=== PATIENT | male | born 1965 | race Caucasian/White ===

== ENCOUNTER 2016-06-19 14:27 | Inpatient (IN) | payer SELFPAY ==
[~2016-06-19] VITALS: Ht 195.6 cm; Wt 78.6 kg
[~2016-06-19 14:27] MED LIST: CLON1 PO
[2016-06-19 14:28] VITALS: BP 123/82; PULSE 90; RESP 24; TEMP 98.5; O2SAT 100
[2016-06-19 16:23] VITALS: TEMP 100.3
[2016-06-19] MEDS ORDERED: IBUPROFEN 600 MG TAB PO ONE (16:30)
--- NOTE | 2016-06-19 16:35 | PD ---
HPI Chief Complaint: Cold / Flu Symptoms Time Seen by Provider: 16:23 Travel History International Travel<30 days: No Contact w/Intl Traveler<30days: No Traveled to known affect area: No History of Present Illness HPI Patient is a 50-year-old male presents with 3 week history of cough productive of bloody sputum. Patient does relate a history that he was in [place] [facility] recently. He denies any fevers. He states he has not seen another physician for this. Denies any travel to foreign countries denies any history of tuberculosis. States he has not been losing weight but does endorse some night sweats. On arrival the patient was afebrile he was moved into the emergency department. On my initial evaluation was found to have a temperature of 100.3 orally. Denies any chest pain abdominal pain nausea vomiting or diarrhea. [facility] Past Medical History Anxiety: Yes ([address] KELLER) Diabetes: Yes (HYPOGLYCEMIA) Patient Takes Glucophage: No Diminished Hearing: No Past Surgical History Other Surgery: Yes (8 I+D PROCEDURES S/P INSECT BITE RIGHT ARM) Social History Alcohol Use: Yes ("maybe one drink once a month!") Tobacco Use: No (quit 3 weeks ago.) Substance Use: No (used to smoke crack) Allergies-Medications (Allergen,Severity, Reaction): Coded Allergies: Influenza Virus Vaccine (Verified Allergy, Severe, 06/19/16) Penicillin (Verified Allergy, Severe, 06/19/16) Uncoded Allergies: NONE (Allergy, Unknown, 11/04/02) PCN, FLU SHOT, CODEINE (Allergy, Unknown, 11/04/02) Reported Meds & Prescriptions Reported Meds & Active Scripts Active No Active Prescriptions or Reported Medications Review of Systems Except as stated in HPI: all other systems reviewed are Neg Physical Exam Narrative GENERAL: Well-developed , thin male in no apparent distress. SKIN: Warm and dry. HEAD: Atraumatic. Normocephalic. EYES: Pupils equal and round. No scleral icterus. No injection or drainage. ENT: No nasal bleeding or discharge. Mucous membranes pink and moist. NECK: Trachea midline. No JVD. CARDIOVASCULAR: Regular rate and rhythm. RESPIRATORY: No accessory muscle use. Clear to auscultation. Breath sounds equal bilaterally. GASTROINTESTINAL: Abdomen soft, non-tender, nondistended. Hepatic and splenic margins not palpable. MUSCULOSKELETAL: Extremities without clubbing, cyanosis, or edema. No obvious deformities. NEUROLOGICAL: Awake and alert. No obvious cranial nerve deficits. Motor grossly within normal limits. Five out of 5 muscle strength in the arms and legs. Normal speech. PSYCHIATRIC: Appropriate mood and affect; insight and judgment normal. Data Data Last Documented VS Vital Signs Date Time Temp Pulse Resp B/P Pulse Ox O2 Delivery O2 Flow Rate FiO2 06/19/16 17:59 95 17 139/78 97 Room Air 118/69 06/19/16 16:23 100.3 Orders Chest, Pa & Lat (06/19/16 ) Ibuprofen (Motrin) (06/19/16 16:30) Electrocardiogram (06/19/16 17:24) Complete Blood Count With Diff (06/19/16 17:24) Comprehensive Metabolic Panel (06/19/16 17:24) Magnesium (Mg) (06/19/16 17:24) Prothrombin Time / Inr (Pt) (06/19/16 17:24) Act Partial Throm Time (Ptt) (06/19/16 17:24) Troponin I (06/19/16 17:24) Ecg Monitoring (06/19/16 17:24) Bilateral Bp Monitoring (06/19/16 17:24) Iv Access Insert/Monitor (06/19/16 17:24) Oximetry (06/19/16 17:24) Oxygen Administration (06/19/16 17:24) Sodium Chloride 0.9% Flush (Ns Flush) (06/19/16 17:30) Blood Culture (06/19/16 17:24) Sodium Chlor 0.9% 1000 Ml Inj (Ns 1000 M (06/19/16 17:30) Piperacil-Tazo 3.375 Gm Premix (Zosyn 3. (06/19/16 17:30) Vancomycin Inj (Vancomycin Inj) (06/19/16 17:30) Lactic Acid (06/19/16 17:24) Isolation (06/19/16 17:24) Ct Thorax/ Chest W Iv Contrast (06/19/16 ) Consult Infectious Disease (06/19/16 ) Admit Order (Ed Use Only) (06/19/16 ) Labs Laboratory Tests Test 06/19/16 18:05 White Blood Count 16.6 TH/MM3 Red Blood Count 4.49 MIL/MM3 Hemoglobin 14.2 GM/DL Hematocrit 40.4 % Mean Corpuscular Volume 90.0 FL Mean Corpuscular Hemoglobin 31.5 PG Mean Corpuscular Hemoglobin 35.0 % Concent Red Cell Distribution Width 13.3 % Platelet Count 278 TH/MM3 Mean Platelet Volume 8.5 FL Neutrophils (%) (Auto) 80.3 % Lymphocytes (%) (Auto) 10.7 % Monocytes (%) (Auto) 7.8 % Eosinophils (%) (Auto) 0.7 % Basophils (%) (Auto) 0.5 % Neutrophils # (Auto) 13.3 TH/MM3 Lymphocytes # (Auto) 1.8 TH/MM3 Monocytes # (Auto) 1.3 TH/MM3 Eosinophils # (Auto) 0.1 TH/MM3 Basophils # (Auto) 0.1 TH/MM3 CBC Comment DIFF FINAL Differential Comment Prothrombin Time 12.6 SEC Prothromb Time International 1.1 RATIO Ratio Activated Partial 29.8 SEC Thromboplast Time Sodium Level 136 MEQ/L Potassium Level 3.9 MEQ/L Chloride Level 100 MEQ/L Carbon Dioxide Level 27.1 MEQ/L Anion Gap 9 MEQ/L Blood Urea Nitrogen 12 MG/DL Creatinine 0.90 MG/DL Estimat Glomerular Filtration 90 ML/MIN Rate Random Glucose 96 MG/DL Lactic Acid Level 0.9 mmol/L Calcium Level 8.8 MG/DL Magnesium Level 1.9 MG/DL Total Bilirubin 1.3 MG/DL Aspartate Amino Transf 38 U/L (AST/SGOT) Alanine Aminotransferase 50 U/L (ALT/SGPT) Alkaline Phosphatase 94 U/L Troponin I LESS THAN 0.02 NG/ML Total Protein 8.2 GM/DL Albumin 2.9 GM/DL [facility] Medical Decision Making Medical Screen Exam Complete: Yes Emergency Medical Condition: Yes Interpretation(s) EKG shows normal sinus rhythm normal axis normal R-wave progression. Voltage criteria for LVH. No concerning ST-T changes. Intervals within normal limits. This an abnormal EKG. Differential Diagnosis Tuberculosis, lung cancer, pneumonia, sepsis, bronchitis, URI. Narrative Course 1729: The patient has had a chest x-ray which shows a possible cavitary lesion in the right upper lung. Recommendations from radiology is to have a CAT scan. At this time the patient was placed on respiratory isolation. He was initially moved from delta 41 to delta 44. It was noted at that time the delta 44 negative isolation was not working. Room and another pod was cleared out which was a functioning isolation pod and the patient was roomed again the Marco pod. Full workup was then initiated. After CAT scan was completed the patient was discussed with Dr. Chapman of interventional radiology who agrees that tuberculosis is on the differential diagnosis however fungal pneumonia necrotic pneumonia or necrotic lung cancer also on the differential diagnoses. Patient remains in respiratory isolation and is otherwise stable. Patient's labs reviewed and showed a white count of 16.6 with left shift, the patient is tachycardic and now with 2 out of 3 SIRS criteria he does meet the diagnosis for sepsis. Broad-spectrum antibiotics were initiated. The patient does not have indication for severe sepsis and therefore aggressive fluid hydration was kept to a minimum. 1944: I spoke to Dr. Villalpando who is on-call for infectious disease today about the patient. They recommends currently that the patient not receive any antibiotics against tuberculosis at this time until the patient has confirmed by acid-fast bacilli or other testing. Recommends that the on-call physician be paged once the diagnosis of TB has been confirmed. They agrees with Daniel for the time being. Dr. Desouza has been paged to admit the patient. Critical Care Narrative Aggregate critical care time was 35 minutes. Time to perform other separately billable procedures was not included in the critical care time. My time did not include minutes spent treating any other patients simultaneously or on activities that did not directly contribute to the patient's treatment. The services I provided to this patient were to treat and/or prevent clinically significant deterioration that could result in: , disability. I provided critical care services requiring my management, as noted below: Chart data review, documentation time, medication orders and management, vital sign assessments/reviewing monitor data, ordering and reviewing lab tests, ordering and interpreting/reviewing x-rays and diagnostic studies, care of the patient and discussion of the patient with the admitting physicians. Diagnosis Primary Impression: Sepsis Qualified Code: A41.9 - Sepsis, due to unspecified organism Additional Impressions: Pneumonia Qualified Code: J18.9 - Pneumonia of right lung due to infectious organism, unspecified part of lung Cavitary lesion of lung Admitting Information Admitting Physician Requests: Admit Scripts No Active Prescriptions or Reported Meds Condition: Stable Bj Singh MD Jun 19, 2016 16:35
--- NOTE | 2016-06-19 17:14 | RADRPT ---
EXAM DATE/TIME: 06/19/2016 16:39 [facility] COMPARISON: No previous studies available for comparison. INDICATIONS : Cough, Hemoptysis, Fever MEDICAL HISTORY : None. SURGICAL HISTORY : None. ENCOUNTER: Initial ACUITY: 4 - 6 days PAIN SCORE: 0/10 LOCATION: Bilateral chest FINDINGS: There is an asymmetric appearance to the medial apex of the right lung with suggestion of a cavitary mass measuring 4.7 cm. The remainder of the lungs are clear. The heart is normal size. The central bronchopulmonary markings both hemidiaphragms. CONCLUSION: Possible cavitary opacity in the medial right pulmonary apex. Recommend further characterization wit h noncontrast CT thorax. Arash Chapman MD on June 19, 2016 at 17:11 Board Certified Radiologist. This report was verified electronically.
[2016-06-19 17:19] VITALS: BP 120/70; PULSE 85; RESP 17; O2SAT 100
[2016-06-19] MEDS ORDERED: VANCOMYCIN INJ 1,000 MG in SODIUM CHLOR 0.9% 250 ML INJ 250 ML IV ONE (17:30)
[2016-06-19] MEDS ORDERED: SODIUM CHLOR 0.9% 1000 ML INJ 1,000 ML IV ONE (17:30)
[2016-06-19] MEDS ORDERED: PIPERACIL-TAZO 3.375 GM PREMIX 50 ML IV ONE (17:30)
[2016-06-19] MEDS ORDERED: SODIUM CHLORIDE 0.9% FLUSH 10 ML FLUSH IVF PRN (17:30)
[2016-06-19 17:59] VITALS: BP_SYST 118; BP_SYST 139; BP_DIAS 69; BP_DIAS 78; PULSE 95; RESP 17; O2SAT 97
[2016-06-19] MEDS ORDERED: IOHEXOL 350 MG/ML 10 ML VIAL (for RAD DIAG) IV ONE (18:28)
[2016-06-19 18:45] LABS: AUTOMATED NEUTROPHIL # 13.3 TH/MM3 (1.8-7.7); BASOPHIL # 0.1 TH/MM3 (0-0.2); BASOPHIL % 0.5 % (0.0-2.0); EOSINOPHIL # 0.1 TH/MM3 (0-0.4); EOSINOPHIL % 0.7 % (0.0-4.0); HEMATOCRIT 40.4 % (39.0-51.0); HEMO FLAGS DIFF FINAL; LYMPH % 10.7 % (9.0-44.0); LYMPHOCYTE # 1.8 TH/MM3 (1.0-4.8); MEAN CORPUSCULAR HEMOGLOBIN 31.5 PG (27.0-34.0); MONO % 7.8 % (0.0-8.0); NEUT % 80.3 % (16.0-70.0); PLATELET COUNT 278 TH/MM3 (150-450); RED BLOOD COUNT 4.49 MIL/MM3 (4.50-5.90); RED CELL DISTRIBUTION WIDTH 13.3 % (11.6-17.2); WHITE BLOOD COUNT 16.6 TH/MM3 (4.0-11.0)
--- NOTE | 2016-06-19 18:52 | RADRPT ---
EXAM DATE/TIME: 06/19/2016 18:28 [facility] COMPARISON: No previous studies available for comparison. INDICATIONS : Cough X 3 weeks; hemoptysis X 3 days. IV CONTRAST: 90 cc Omnipaque 350 (iohexol) IV RADIATION DOSE: 4.83 CTDIvol (mGy) MEDICAL HISTORY : Diabetes mellitus type 1. SURGICAL HISTORY : None. ENCOUNTER: Initial ACUITY: 3 weeks PAIN SCALE: 0/10 LOCATION: chest TECHNIQUE: Volumetric scanning of the chest was performed. Using automated exposure control and adjustment of t he mA and/or kV according to patient size, radiation dose was kept as low as reasonably achievable to obtain optimal diagnostic quality images. FINDINGS: LUNGS: There is a 4.3 x 5.9 cm mass in the medial right apex which measures 4.3 cm. Irregular air-containin g cavity centrally. There are a few bronchopulmonary markings in the medial right upper lung which i s are partially retracted towards the mass. There are several subpleural blebs present medially in b oth lungs. No other focal areas of infiltrate seen. Some thickening along the inferior pulmonary li gaments bilaterally. PLEURA: There is no pleural thickening or pleural effusion. MEDIASTINUM: The heart and great vessels demonstrate no acute abnormality. There is no mediastinal or hilar lymph adenopathy. AXILLAE: Within normal limits. No lymphadenopathy. SKELETAL: Within normal limits for patient age. MISCELLANEOUS: Both adrenal glands are grossly intact. CONCLUSION: Greater than 5 cm thickwalled cavitary lesion in the right apex without central debris within the cav ity. Differential considerations include a bacterial infection, fungal infection, and necrotic tumor . No evidence of mediastinal adenopathy or pleural effusion. Arash Chapman MD on June 19, 2016 at 18:44 Board Certified Radiologist. This report was verified electronically.
[2016-06-19 19:03] LABS: APTT (PATIENT) 29.8 SEC (24.3-30.1); INTERNATIONAL NORMALIZED RATIO 1.1 RATIO; PROTHROMBIN TIME - PATIENT 12.6 SEC (9.8-11.6)
[2016-06-19 19:07] LABS: ANION GAP 9 MEQ/L (5-15); AST (GOT) 38 U/L (15-37); BICARBONATE 27.1 MEQ/L (21.0-32.0); BLOOD UREA NITROGEN 12 MG/DL (7-18); CHLORIDE 100 MEQ/L (98-107); GLOMERULAR FILTRATION RATE 90 ML/MIN (>89); MAGNESIUM 1.9 MG/DL (1.5-2.5); POTASSIUM 3.9 MEQ/L (3.5-5.1); SODIUM (NA) 136 MEQ/L (136-145)
[2016-06-19 19:12] LABS: ALKALINE PHOSPHATASE 94 U/L (45-117); ALT (GPT) 50 U/L (12-78); TOTAL BILIRUBIN ADULT 1.3 MG/DL (0.2-1.0)
[2016-06-19] MEDS ORDERED: NALOXONE HCL 0.4 MG/ML AMP IV PRN (20:00)
[2016-06-19] MEDS ORDERED: ENALAPRILAT 1.25 MG/ML VIAL IV PUSH PRN (20:00)
[2016-06-19] MEDS ORDERED: MORPHINE SULFATE 4 MG/ML INJ IV PRN (20:00)
[2016-06-19] MEDS ORDERED: ONDANSETRON HCL 4 MG/2 ML VIAL IVP PRN (20:00)
[2016-06-19] MEDS ORDERED: SODIUM CHLORIDE 0.9% FLUSH 10 ML FLUSH IV FLUSH PRN (20:00)
[2016-06-19] MEDS ORDERED: ACETAMINOPHEN 325 MG TAB PO PRN ×2 (20:00)
[2016-06-19] MEDS ORDERED: TEMAZEPAM 15 MG CAP PO PRN (20:00)
[2016-06-19] MEDS ORDERED: RESP: ALBUTEROL 2.5 MG/IPRATROPIUM 0.5 MG NEB (PRN) NEB (20:00)
[2016-06-19 20:01] VITALS: BP 124/70; PULSE 84; RESP 16; TEMP 98.7; O2SAT 97
[2016-06-19] MEDS ORDERED: Vancomycin Consult Pharmacy 1 EA OTHER PRN (20:15)
--- NOTE | 2016-06-19 20:29 | HHI.HP ---
HPI Service [facility] Primary Care Physician No Primary Care Physician Admission Diagnosis Cavitary Lung Lesion. Diagnoses: (1) Cavitary lesion of lung (2) Community acquired bacterial pneumonia (3) Aspiration pneumonia (4) Protein-calorie malnutrition, severe (5) Sepsis Chief Complaint: Bloody sputum production Travel History International Travel<30 Days: No Contact w/Intl Traveler <30 Da: No Traveled to Known Affected Are: No Sepsis Criteria SIRS Criteria (2 or more): Temp > 100.9 or < 96.8, WBC > 80466, < 4000 or > 10 % bands Sepsis Criteria (SIRS+source): Infect source susp/known Criteria Outcome: Meets sepsis criteria History of Present Illness 50 year-old male with a history of anxiety/depression presented to the ED for evaluation of 3 weeks history of bloody sputum production associated with night sweats, subjective fevers and increased shortness of breath along with a 30 pound weight loss over the past 1 month. She also reported sick contacts, his girlfriend however with symptoms not as severe as his. He was recently in care home or denies any trauma to any foreign countries or known history of exposure to tuberculosis. Patient states he's tried [id number] Mucinex for his cough and cold symptoms without any improvement . In the ED, vitals include temperature of 100.3 and WBC of 16.6 and abnormal chest x-ray as well as CT chest Patient is a 50-year-old male presents with 3 week history of cough productive of bloody sputum. Patient does relate a history that he was in care home recently. He denies any fevers. He states he has not seen another physician for this. Denies any travel to foreign countries denies any history of tuberculosis. States he has not been losing weight but does endorse some night sweats. On arrival the patient was afebrile he was moved into the emergency department. On my initial evaluation was found to have a temperature of 100.3 orally. Denies any chest pain abdominal pain nausea vomiting or diarrhea. Review of Systems Other 12 systems reviewed and are negative except for the one mentioned in history of present illness Past Family Social History Past Medical History Anxiety/depression Past Surgical History I+D PROCEDURES S/P INSECT BITE RIGHT ARM Right elbow surgery Reported Medications Not Currently on any medication Allergies: Coded Allergies: Influenza Virus Vaccine (Verified Allergy, Severe, 06/19/16) Penicillin (Verified Allergy, Severe, 06/19/16) Uncoded Allergies: NONE (Allergy, Unknown, 11/04/02) PCN, FLU SHOT, CODEINE (Allergy, Unknown, 11/04/02) Family History father from heart attack at age 71. Had history of heart disease Mother has history of hypertension, heart disease Social History Alcohol Use: Yes ("maybe one drink once a month!") Tobacco Use: No (quit 3 weeks ago.) Substance Use: No (used to smoke crack) Physical Exam Vital Signs Vital Signs Date Time Temp Pulse Resp B/P Pulse Ox O2 Delivery O2 Flow Rate FiO2 06/19/16 20:01 98.7 84 16 124/70 97 Room Air 06/19/16 17:59 95 17 139/78 97 Room Air 118/69 06/19/16 17:19 85 17 120/70 100 Room Air 06/19/16 16:23 100.3 06/19/16 14:28 98.5 90 24 123/82 100 Room Air Physical Exam GENERAL: Cachectic looking man with temporal wasting SKIN: No rashes, ecchymoses or lesions. Cool and dry. HEAD: Atraumatic. Normocephalic. No temporal or scalp tenderness. EYES: Pupils equal round and reactive. Extraocular motions intact. No scleral icterus. No injection or drainage. ENT: Nose without bleeding, purulent drainage or septal hematoma. Throat without erythema, tonsillar hypertrophy or exudate. Uvula midline. Airway patent. NECK: Trachea midline. No JVD or lymphadenopathy. Supple, nontender, no meningeal signs. CARDIOVASCULAR: Regular rate and rhythm without murmurs, gallops, or rubs. RESPIRATORY: Clear to auscultation. Breath sounds decreased bilaterally. No wheezes, rales, or rhonchi. GASTROINTESTINAL: Abdomen soft, non-tender, nondistended. No hepato-splenomegaly , or palpable masses. No guarding. MUSCULOSKELETAL: Extremities without clubbing, cyanosis, or edema. No joint tenderness, effusion, or edema noted. No calf tenderness. Negative Homans sign bilaterally. NEUROLOGICAL: Awake and alert. Cranial nerves II through XII intact. Motor and sensory grossly within normal limits. Five out of 5 muscle strength in all muscle groups. Normal speech. Laboratory Laboratory Tests Test 06/19/16 18:05 White Blood Count 16.6 Red Blood Count 4.49 Hemoglobin 14.2 Hematocrit 40.4 Mean Corpuscular Volume 90.0 Mean Corpuscular Hemoglobin 31.5 Mean Corpuscular Hemoglobin 35.0 Concent Red Cell Distribution Width 13.3 Platelet Count 278 Mean Platelet Volume 8.5 Neutrophils (%) (Auto) 80.3 Lymphocytes (%) (Auto) 10.7 Monocytes (%) (Auto) 7.8 Eosinophils (%) (Auto) 0.7 Basophils (%) (Auto) 0.5 Neutrophils # (Auto) 13.3 Lymphocytes # (Auto) 1.8 Monocytes # (Auto) 1.3 Eosinophils # (Auto) 0.1 Basophils # (Auto) 0.1 CBC Comment DIFF FINAL Differential Comment Prothrombin Time 12.6 Prothromb Time International 1.1 Ratio Activated Partial 29.8 Thromboplast Time Sodium Level 136 Potassium Level 3.9 Chloride Level 100 Carbon Dioxide Level 27.1 Anion Gap 9 Blood Urea Nitrogen 12 Creatinine 0.90 Estimat Glomerular Filtration 90 Rate Random Glucose 96 Lactic Acid Level 0.9 Calcium Level 8.8 Magnesium Level 1.9 Total Bilirubin 1.3 Aspartate Amino Transf 38 (AST/SGOT) Alanine Aminotransferase 50 (ALT/SGPT) Alkaline Phosphatase 94 Troponin I LESS THAN 0.02 Total Protein 8.2 Albumin 2.9 Date/Time Procedure Status Source Growth 06/19/16 18:05 Aerobic Blood Culture Received Blood Peripheral Pending 06/19/16 18:05 Anaerobic Blood Culture Received Blood Peripheral Pending Result Diagram: 06/19/16 1805 06/19/16 1805 Imaging Last Impressions Chest X-Ray 06/19/16 0000 Signed Impressions: Service Date/Time: Sunday, June 19, 2016 16:39 - CONCLUSION: Possible cavitary opacity in the medial right pulmonary apex. Recommend further characterization with noncontrast CT thorax. Arash Chapman MD Chest CT 06/19/16 0000 Signed Impressions: Service Date/Time: Sunday, June 19, 2016 18:28 - CONCLUSION: Greater than 5 cm thickwalled cavitary lesion in the right apex without central debris within the cavity. Differential considerations include a bacterial infection, fungal infection, and necrotic tumor. No evidence of mediastinal adenopathy or pleural effusion. Arash Chapman MD Assessment and Plan Problem List: (1) Sepsis ICD Code: A41.9 Status: Acute (2) Cavitary lesion of lung ICD Code: J98.4 Status: Acute (3) Pneumonia ICD Code: J18.9 Status: Acute (4) Protein-calorie malnutrition, severe ICD Code: E43 Status: Acute (5) Community acquired bacterial pneumonia ICD Code: J15.9 Status: Acute (6) Aspiration pneumonia ICD Code: J69.0 Status: Acute Assessment and Plan 50-year-old man with Sepsis:Meets sepsis criteria, Temp > 100.9 or < 96.8, WBC > 94111, < 4000 or > 10% bands, Infect source susp/known (Respiratory/ PNA): s/p Vancomycin and Zosyn IV x 1 in ED, continue with Abx pending culture reports Cavitary lesion of the Lung Rule out tuberculosis Rule out malignancy Community acquired Bacterial Pneumonia Aspiration Bacterial Pneumonia -Chest CT noted and reviewed by me with finding of Greater than 5 cm thickwalled cavitary lesion in the right apex without central debris within the cavity. Differential considerations include a bacterial infection, fungal infection, and necrotic tumor -Chest x-ray noted and reviewed by me with finding of Possible cavitary opacity in the medial right pulmonary apex -Check Sylvain tuberculosis/RIF, AFP sputum -Check tumor Markers AFP, CEA, Ca 19-9, LDH -Check HIV 1/2 antibodies -Status post Zosyn and vancomycin 1 in ED, continue empiric treatments with antibiotics pending culture report -DuoNeb when necessary and Mucinex -Consult infectious disease specialist and consider consultation to pulmonary medicine for eval patient for possible bronchoscopy -Please in isolation Protein-calorie malnutrition severe Secondary to above Dietary/Vertical Punch Operator consult for calorie counts DVT prophylaxis: Bilateral SCDs GI prophylaxis: PPI Code Status Full code Discussed Condition With Patient, ED physician Physician Certification 2 Midnight Certification Type: Admission for Inpatient Services Order for Inpatient Services The services are ordered in accordance with Medicare regulations or non- Medicare payer requirements, as applicable. In the case of services not specified as inpatient-only, they are appropriately provided as inpatient services in accordance with the 2-midnight benchmark. Estimated LOS (days): 2 days is the estimated time the patient will need to remain in the hospital, assuming treatment plan goals are met and no additional complications. Post-Hospital Plan: Not yet determined Problem Qualifiers (1) Sepsis: Qualified Code: A41.9 - Sepsis, due to unspecified organism (2) Pneumonia: Qualified Code: J18.9 - Pneumonia of right lung due to infectious organism, unspecified part of lung Dillon Desouza MD Jun 19, 2016 20:29
[2016-06-19] MEDS: guaiFENesin E.R. 600 MG TAB PO SCH (21:24)
[2016-06-19] MEDS: LACTOBACILLUS ACIDOPHILUS TAB PO SCH (21:24)
[2016-06-19] MEDS: SODIUM CHLORIDE 0.9% FLUSH 10 ML FLUSH IV FLUSH SCH (21:24)
[2016-06-19] MEDS: SODIUM CHLOR 0.9% 1000 ML INJ 1,000 ML IV SCH (21:24)
[2016-06-19 22:58] VITALS: BP 113/63; PULSE 76; RESP 18; TEMP 98.2; O2SAT 97
[2016-06-20 01:04] LABS: AMPHETAMINE, URINE NEG (NEG); BARBITURATES, URINE NEG (NEG); COCAINE, URINE POS (NEG)
[2016-06-20] MEDS: PIPERACIL-TAZO 3.375 GM PREMIX 50 ML IV SCH ×3 (02:18→17:29)
[2016-06-20 04:42] VITALS: BP 109/64; PULSE 83; RESP 18; TEMP 98.8; O2SAT 96
[2016-06-20 06:38] LABS: AUTOMATED NEUTROPHIL # 7.5 TH/MM3 (1.8-7.7); BASOPHIL # 0.1 TH/MM3 (0-0.2); BASOPHIL % 0.8 % (0.0-2.0); EOSINOPHIL # 0.3 TH/MM3 (0-0.4); EOSINOPHIL % 2.7 % (0.0-4.0); HEMATOCRIT 38.7 % (39.0-51.0); HEMO FLAGS DIFF FINAL; LYMPH % 22.3 % (9.0-44.0); LYMPHOCYTE # 2.7 TH/MM3 (1.0-4.8); MEAN CELL VOLUME 91.5 FL (80.0-100.0); MEAN CORPUSCULAR HEMOGLOBIN 31.1 PG (27.0-34.0); MONO % 11.4 % (0.0-8.0); NEUT % 62.8 % (16.0-70.0); PLATELET COUNT 236 TH/MM3 (150-450); RED BLOOD COUNT 4.22 MIL/MM3 (4.50-5.90); RED CELL DISTRIBUTION WIDTH 13.6 % (11.6-17.2)
[2016-06-20 07:03] LABS: ALT (GPT) 40 U/L (12-78); ANION GAP 4 MEQ/L (5-15); AST (GOT) 29 U/L (15-37); BICARBONATE 30.7 MEQ/L (21.0-32.0); BLOOD UREA NITROGEN 17 MG/DL (7-18); CHLORIDE 106 MEQ/L (98-107); GLOMERULAR FILTRATION RATE 79 ML/MIN (>89); SODIUM (NA) 141 MEQ/L (136-145)
[2016-06-20 07:05] LABS: ALKALINE PHOSPHATASE 75 U/L (45-117); TOTAL BILIRUBIN ADULT 0.8 MG/DL (0.2-1.0)
[2016-06-20] MEDS: SODIUM CHLOR 0.9% 1000 ML INJ 1,000 ML IV SCH ×2 (07:44→09:57)
[2016-06-20] MEDS: SODIUM CHLORIDE 0.9% FLUSH 10 ML FLUSH IV FLUSH SCH ×2 (09:00→20:08)
[2016-06-20] MEDS: guaiFENesin E.R. 600 MG TAB PO SCH ×2 (09:58→20:16)
[2016-06-20] MEDS: LACTOBACILLUS ACIDOPHILUS TAB PO SCH ×2 (09:58→20:16)
[2016-06-20] MEDS: PANTOPRAZOLE SOD 40 MG DELAYED RELEASE TAB PO SCH (09:58)
[2016-06-20 11:53] VITALS: BP 112/59; PULSE 72; RESP 18; TEMP 98.2; O2SAT 97
--- NOTE | 2016-06-20 13:24 | HHI.PR ---
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 No hemoptysis. No fevers or chills/ overnight. No n/v/d. Feels better today. Objective Vitals Vital Signs Date Time Temp Pulse Resp B/P Pulse Ox O2 Delivery O2 Flow Rate FiO2 06/20/16 11:53 98.2 72 18 112/59 97 06/20/16 04:42 98.8 83 18 109/64 96 06/19/16 22:58 98.2 76 18 113/63 97 06/19/16 20:01 98.7 84 16 124/70 97 Room Air 06/19/16 17:59 95 17 139/78 97 Room Air 118/69 06/19/16 17:19 85 17 120/70 100 Room Air 06/19/16 16:23 100.3 06/19/16 14:28 98.5 90 24 123/82 100 Room Air Result Diagram: 06/20/16 0605 06/20/16 0605 Imaging Last Impressions Chest X-Ray 06/19/16 0000 Signed Impressions: Service Date/Time: Sunday, June 19, 2016 16:39 - CONCLUSION: Possible cavitary opacity in the medial right pulmonary apex. Recommend further characterization with noncontrast CT thorax. Arash Chapman MD Chest CT 06/19/16 0000 Signed Impressions: Service Date/Time: Sunday, June 19, 2016 18:28 - CONCLUSION: Greater than 5 cm thickwalled cavitary lesion in the right apex without central debris within the cavity. Differential considerations include a bacterial infection, fungal infection, and necrotic tumor. No evidence of mediastinal adenopathy or pleural effusion. Arash Chapman MD Objective Remarks GENERAL: Cachectic looking man with temporal wasting SKIN: No rashes, ecchymoses or lesions. Cool and dry. HEAD: Atraumatic. Normocephalic. No temporal or scalp tenderness. EYES: Pupils equal round and reactive. Extraocular motions intact. No scleral icterus. No injection or drainage. ENT: Nose without bleeding, purulent drainage or septal hematoma. Throat without erythema, tonsillar hypertrophy or exudate. Uvula midline. Airway patent. NECK: Trachea midline. No JVD or lymphadenopathy. Supple, nontender, no meningeal signs. CARDIOVASCULAR: Regular rate and rhythm without murmurs, gallops, or rubs. RESPIRATORY: Clear to auscultation. Breath sounds decreased bilaterally. No wheezes, rales, or rhonchi. GASTROINTESTINAL: Abdomen soft, non-tender, nondistended. No hepato-splenomegaly , or palpable masses. No guarding. MUSCULOSKELETAL: Extremities without clubbing, cyanosis, or edema. No joint tenderness, effusion, or edema noted. No calf tenderness. Negative Homans sign bilaterally. NEUROLOGICAL: Awake and alert. Cranial nerves II through XII intact. Motor and sensory grossly within normal limits. Five out of 5 muscle strength in all muscle groups. Normal speech. A/P Problem List: (1) Sepsis ICD Code: A41.9 Status: Acute (2) Cavitary lesion of lung ICD Code: J98.4 Status: Acute (3) Pneumonia ICD Code: J18.9 Status: Acute (4) Protein-calorie malnutrition, severe ICD Code: E43 Status: Acute (5) Community acquired bacterial pneumonia ICD Code: J15.9 Status: Acute (6) Aspiration pneumonia ICD Code: J69.0 Status: Acute Assessment and Plan 50-year-old man with Sepsis:Meets sepsis criteria, Temp > 100.9 or < 96.8, WBC > 62238, < 4000 or > 10% bands, Infect source susp/known (Respiratory/ PNA): s/p Vancomycin and Zosyn IV x 1 in ED, continue with Abx pending culture reports Cavitary lesion of the Lung Rule out tuberculosis Rule out malignancy Community acquired Bacterial Pneumonia Aspiration Bacterial Pneumonia -Chest CT noted and reviewed by me with finding of Greater than 5 cm thick walled cavitary lesion in the right apex without central debris within the cavity. Differential considerations include a bacterial infection, fungal infection, and necrotic tumor -Chest x-ray noted and reviewed by me with finding of Possible cavitary opacity in the medial right pulmonary apex -Check Sylvain tuberculosis/RIF, AFP sputum -Check tumor Markers AFP, CEA, Ca 19-9, LDH -Check HIV 1/2 antibodies -Status post Zosyn and vancomycin 1 in ED, continue empiric treatments with antibiotics pending culture report -DuoNeb when necessary and Mucinex -Consult infectious disease specialist -Consultation to pulmonary medicine for eval patient for possible bronchoscopy -Placed in isolation Protein-calorie malnutrition severe Secondary to above 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
--- NOTE | 2016-06-20 14:29 | EKG ---
Date Performed: 06/19/2016 Time Performed: 17:44:30 PTAGE: 50 years EKG: Sinus rhythm VOLTAGE CRITERIA FOR LVH ABNORMAL ECG Compared to prior tracing no significant change PREVIOUS TRACING : 06/06/2002 06.57 DOCTOR: Elijah Shay Interpretating Date/Time 06/20/2016 14:25:53
[2016-06-20] MEDS: VANCOMYCIN 1,500 MG/NS 500 ML IV SCH ×2 (14:56)
--- NOTE | 2016-06-20 15:24 | MB ---
cc: HEIKE BILL,MARY JO Munguia MD DATE OF CONSULTATION: 06/20/[address] Bill REASON FOR CONSULTATION Likely pulmonary tuberculosis. HISTORY OF PRESENT ILLNESS This is a 50-year-old white male who presented to the emergency department with cough and shortness of breath. The patient has been coughing up blood for about three weeks. He tells me that he was coughing up clumps of blood throughout that time. He states that he was taking [id number] medications but was not leading to improvement. He also notes having night sweats and weight loss. He states that he lost approximately 30 pounds of weight over the past three weeks. He denies any sick contacts of contact with persons with tuberculosis. The patient smokes about a quarter pack of cigarettes a day and smoked up until three weeks ago. His temperature was 100.3 degrees yesterday evening. Blood cultures have no growth. The white count was elevated at 16.6. Sputum for AFB is pending. Blood cultures have no growth in one day. Chest x-ray was performed and showed possible cavitary opacity at the medial right pulmonary apex. CT scan of the lungs was performed and showed greater than a 5 cm thick wall cavity lesion in the right apex. The patient denies chills. He denies headaches. He states that he has been coughing quite a bit in the morning time. PAST MEDICAL HISTORY 1. Anxiety. 2. Depression. 3. History of MRSA infection of the right arm. 4. Right elbow surgery. ALLERGIES 1. PENICILLIN. 2. CODEINE. 3. INFLUENZA VIRUS VACCINE. MEDICATIONS 1. Vancomycin. 2. Piperacillin/tazobactam. 3. Protonix. 4. Mucinex. 5. Lactinex. SOCIAL HISTORY Recently quit smoking three weeks ago. The patient used to smoke a pack of cigarettes a day and has been smoking for 21 years. Occasional alcohol. Denies illicit drugs. FAMILY HISTORY The patient's mom has hypertension. The patient's dad from heart disease. REVIEW OF SYSTEMS GENERAL: Significant for sweats. Denies fevers and chills. HEAD, EYES, EARS, NOSE, AND THROAT: No visual blurring or diplopia. No difficulty swallowing or soreness of the throat. Chronic nasal congestion. CARDIOVASCULAR: No palpitation or chest pain. RESPIRATORY: Significant for hemoptysis and cough. GASTROINTESTINAL: No nausea, vomiting, abdominal pain or diarrhea. GENITOURINARY: No urgency, frequency or dysuria. MUSCULOSKELETAL: No muscle aches or pains. ENDOCRINE: No polyuria or polydipsia. HEMATOPOIETIC: No easy bruising or bleeding. INTEGUMENTARY: No skin rash or itching. NEUROLOGIC: No problems with coordination or dizziness. PSYCHIATRIC: Significant for depression. PHYSICAL EXAMINATION GENERAL: This is a well-developed slender male who is in no acute distress. He is awake, alert and oriented. VITAL SIGNS: Temperature 98.2, BP 112/59, respirations 18, heart rate 72. HEENT: The head is atraumatic. Extraocular movements grossly intact. Pupils reactive to light. No icterus. Oropharynx no visible lesions, no thrush. NECK: Supple. No adenopathy or swelling. LUNGS: Decreased breath sounds throughout. No audible rhonchi. HEART: Regular rate and rhythm without murmurs, rubs or gallops. ABDOMEN: Bowel sounds present. Soft, nontender. RECTAL: Not performed. EXTREMITIES: No clubbing, cyanosis or edema. SKIN: No rash. The skin of the extremities have a chronic sunburn appearance. NEUROLOGIC: Nonfocal. PSYCHIATRIC: Patient calm and cooperative. LABORATORY WBC 12.0, platelets 236, 62% neutrophils, 22% lymphocytes, 11% monocytes, hemoglobin 13.1. Creatinine 1.01, BUN 17, sodium 141. LFTs normal. Toxicology screen positive for cocaine. HIV negative. IMPRESSION 1. Cavitary lung lesion. 2. Pneumonia due to bacterial versus tuberculosis versus fungus. 3. Rule out malignancy. 4. Sepsis based on presentation of fever along with leukocytosis and pneumonia of the lung suspected. RECOMMENDATIONS 1. Continue vancomycin. 2. Continue piperacillin/tazobactam. 3. Follow the AFB of the sputum. 4. Follow blood cultures. 5. Monitor clinical status. 6. Further recommendations will be given depending on the patient's clinical status and results of the sputum AFB. 7. The patient does not need to be started on anti-TB medications until work-up is performed and tuberculosis is diagnosed. Thank you for this consultation. Mary Jo Hurst MD FD/GILBERTO /1:39 PM /3:08 PM
[2016-06-20 15:35] VITALS: BP 116/72; PULSE 69; RESP 18; TEMP 98.3; O2SAT 97
[2016-06-20] MEDS ORDERED: VANCOMYCIN INJ 1,000 MG in SODIUM CHLOR 0.9% 250 ML INJ 250 ML IV SCH (18:00)
[2016-06-20 20:19] VITALS: BP 119/72; PULSE 80; RESP 18; TEMP 98.2; O2SAT 95
[2016-06-21] VITALS (8 sets, daily range): BP systolic 100–124; BP diastolic 58–75; PULSE 64–73; RESP 16–20; TEMP 96.6–99.1; O2SAT 95–98
[2016-06-21] MEDS: VANCOMYCIN 1,500 MG/NS 500 ML IV SCH ×4 (01:33→14:14)
[2016-06-21] MEDS: SODIUM CHLOR 0.9% 1000 ML INJ 1,000 ML IV SCH ×3 (01:51→21:51)
[2016-06-21] MEDS: PIPERACIL-TAZO 3.375 GM PREMIX 50 ML IV SCH ×3 (03:55→18:35)
--- NOTE | 2016-06-21 08:24 | MB ---
cc: JACQUES JOSHUA DATE OF CONSULTATION 06/20/[address] Duran REASON FOR CONSULTATION Evaluation of lung infiltrates and cavitary lesions. HISTORY OF PRESENT ILLNESS Mr. Chávez is a 50-year-old male who has not seen a physician for a long time. He was not feeling well over the last three weeks or so, he has cough and sputum production and has coughed up blood a few times. He says that coughing blood had scared him and that is why he decided to come to the emergency room. He has been eating very well, but has lost about 30 pounds of weight over the last three weeks. No nausea or vomiting. With these symptoms, he came to the hospital. He had a CT scan of the chest done which shows that he has a large cavitary lesion in the right apex. His CBC showed a WBC count of 12.0, hemoglobin 13.1, hematocrit 38.7, MCV 91, platelet count 236. His sodium 141, potassium 4.0, chloride 106, CO2 30, BUN 17, creatinine 1.01, INR is 1.1. PAST MEDICAL HISTORY His past medical history is a significant for: 1. Anxiety depression 2. History of MRSA infection. 3. Elbow surgery MEDICATIONS He is currently takin. Vancomycin 2. Protonix 3. Zosyn 4. Temazepam 5. Albuterol/Atrovent nebulizer treatment. ALLERGIES PENICILLIN, FLU SHOT AND CODEINE. SOCIAL HISTORY He has a history of smoking more than a pack a day which she had cut down to a few cigarettes a day. He stopped drinking five years ago. He has used marijuana and cocaine in the past. Denies any IV drug abuse. 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 FAMILY HISTORY He was a long time ago. He has no children. He has a brother and sister. REVIEW OF SYSTEMS He has been incarcerated a couple of times a long time ago. Denies any known contact with TB. No seizure, stroke or epilepsy. No episodes of passing out. PHYSICAL EXAMINATION This is a well-built, well-nourished male not in acute distress. VITAL SIGNS: Blood pressure 119/72, heart rate 80, respiration 18, temperature 98.2. HEENT: Pupils are equal and reactive to light. Oral mucosa and nasal mucosa normal. NECK: JVP not raised. CHEST: Equal air entry. No rhonchi. CARDIOVASCULAR: S1 and S2 normal. ABDOMEN: Benign. EXTREMITIES: Without edema. IMPRESSION 1. Right upper lobe cavitary lesion, possibility of infectious process like TB, fungal infection. However, malignancy is not completely ruled out. 2. Hemoptysis 3. Weight loss 4. History of nicotine use. PLAN I discussed with the patient. The patient is being seen by Dr. Hurst. We will check his cultures. If AFB negative, then we will consider bronchoscopy. Continue present antibiotic treatment. Further treatment to depend upon the course in the hospital. Thank you Dr. Duran for this consultation. MD MARGE Amaya/ALEXIS /8:34 PM /8:06 AM MTDJeanie
[2016-06-21] MEDS: PANTOPRAZOLE SOD 40 MG DELAYED RELEASE TAB PO SCH (08:33)
[2016-06-21] MEDS: guaiFENesin E.R. 600 MG TAB PO SCH ×2 (08:33→21:51)
[2016-06-21] MEDS: LACTOBACILLUS ACIDOPHILUS TAB PO SCH ×2 (08:33→21:51)
[2016-06-21] MEDS: SODIUM CHLORIDE 0.9% FLUSH 10 ML FLUSH IV FLUSH SCH ×2 (08:34→21:50)
[2016-06-21] MEDS ORDERED: CANDIDA ALBICANS 0.1 ML SYRINGE I-DERMAL ONE (14:00)
[2016-06-21] MEDS ORDERED: TUBERCULIN, PPD 5 UNITS/0.1 ML SYRINGE I-DERMAL ONE (14:00)
--- NOTE | 2016-06-21 14:46 | HHI.PR ---
Subjective Remarks Seen earlier today/ Patient says she has cough when he is changing positions. No blood in it. No n/v/d/c. Denies sob. He wants regular diet. Objective Vitals Vital Signs Date Time Temp Pulse Resp B/P Pulse Ox O2 Delivery O2 Flow Rate FiO2 06/21/16 13:05 96.6 70 18 107/70 95 06/21/16 11:21 97.4 65 16 114/71 98 06/21/16 07:46 98.5 64 16 102/63 97 06/21/16 04:00 97.6 73 17 112/59 97 06/21/16 00:00 99.1 71 17 123/74 97 06/20/16 20:19 98.2 80 18 119/72 95 06/20/16 15:35 98.3 69 18 116/72 97 I/O 06/20/16 06/20/16 06/20/16 06/21/16 06/21/16 06/21/16 07:00 15:00 23:00 07:00 15:00 23:00 Intake Total 980 ml 480 ml Output Total 700 ml 600 ml Balance 280 ml -120 ml Intake Oral 980 ml 480 ml Output Urine Total 700 ml 600 ml # Voids 2 3 2 Result Diagram: 06/20/16 0605 06/21/16 1000 Imaging Last Impressions Chest X-Ray 06/19/16 0000 Signed Impressions: Service Date/Time: Sunday, June 19, 2016 16:39 - CONCLUSION: Possible cavitary opacity in the medial right pulmonary apex. Recommend further characterization with noncontrast CT thorax. Arash Chapman MD Chest CT 06/19/16 0000 Signed Impressions: Service Date/Time: Sunday, June 19, 2016 18:28 - CONCLUSION: Greater than 5 cm thickwalled cavitary lesion in the right apex without central debris within the cavity. Differential considerations include a bacterial infection, fungal infection, and necrotic tumor. No evidence of mediastinal adenopathy or pleural effusion. Arash Chapman MD Objective Remarks GENERAL: Cachectic looking man with temporal wasting SKIN: No rashes, ecchymoses or lesions. Cool and dry. HEAD: Atraumatic. Normocephalic. No temporal or scalp tenderness. EYES: Pupils equal round and reactive. Extraocular motions intact. No scleral icterus. No injection or drainage. ENT: Nose without bleeding, purulent drainage or septal hematoma. Throat without erythema, tonsillar hypertrophy or exudate. Uvula midline. Airway patent. NECK: Trachea midline. No JVD or lymphadenopathy. Supple, nontender, no meningeal signs. CARDIOVASCULAR: Regular rate and rhythm without murmurs, gallops, or rubs. RESPIRATORY: Clear to auscultation. Breath sounds decreased bilaterally. No wheezes, rales, or rhonchi. GASTROINTESTINAL: Abdomen soft, non-tender, nondistended. No hepato-splenomegaly , or palpable masses. No guarding. MUSCULOSKELETAL: Extremities without clubbing, cyanosis, or edema. No joint tenderness, effusion, or edema noted. No calf tenderness. Negative Homans sign bilaterally. NEUROLOGICAL: Awake and alert. Cranial nerves II through XII intact. Motor and sensory grossly within normal limits. Five out of 5 muscle strength in all muscle groups. Normal speech. A/P Problem List: (1) Sepsis ICD Code: A41.9 Status: Acute (2) Cavitary lesion of lung ICD Code: J98.4 Status: Acute (3) Pneumonia ICD Code: J18.9 Status: Acute (4) Protein-calorie malnutrition, severe ICD Code: E43 Status: Acute (5) Community acquired bacterial pneumonia ICD Code: J15.9 Status: Acute (6) Aspiration pneumonia ICD Code: J69.0 Status: Acute Assessment and Plan 50-year-old man with Sepsis:Meets sepsis criteria, Temp > 100.9 or < 96.8, WBC > 70432, < 4000 or > 10% bands, Infect source susp/known (Respiratory/ PNA): s/p Vancomycin and Zosyn IV x 1 in ED, continue with Abx pending culture reports Cavitary lesion of the Lung Rule out tuberculosis Rule out malignancy Community acquired Bacterial Pneumonia Aspiration Bacterial Pneumonia -Chest CT noted and reviewed by me with finding of Greater than 5 cm thick walled cavitary lesion in the right apex without central debris within the cavity. Differential considerations include a bacterial infection, fungal infection, and necrotic tumor -Chest x-ray noted and reviewed by me with finding of Possible cavitary opacity in the medial right pulmonary apex -Check Sylvain tuberculosis/RIF, AFP sputum -Check tumor Markers AFP, CEA, Ca 19-9, LDH -Check HIV 1/2 antibodies -Status post Zosyn and vancomycin 1 in ED, continue empiric treatments with antibiotics pending culture report -DuoNeb when necessary and Mucinex -Consult infectious disease specialist -Consultation to pulmonary medicine for eval patient for possible bronchoscopy. 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
--- NOTE | 2016-06-21 19:27 | HHI.PR ---
Subjective Remarks YOWM with RUL cavitary lesion, hemoptysis Still has cough and sputum had fever last night Objective Vital Signs Vital Signs Date Time Temp Pulse Resp B/P Pulse Ox O2 Delivery O2 Flow Rate FiO2 06/21/16 15:15 98.0 69 18 116/62 96 06/21/16 13:05 96.6 70 18 107/70 95 06/21/16 11:21 97.4 65 16 114/71 98 06/21/16 07:46 98.5 64 16 102/63 97 06/21/16 04:00 97.6 73 17 112/59 97 06/21/16 00:00 99.1 71 17 123/74 97 06/20/16 20:19 98.2 80 18 119/72 95 I/O 06/20/16 06/20/16 06/20/16 06/21/16 06/21/16 06/21/16 06:59 14:59 22:59 06:59 14:59 22:59 Intake Total 980 ml 480 ml Output Total 700 ml 600 ml Balance 280 ml -120 ml Intake Oral 980 ml 480 ml Output Urine Total 700 ml 600 ml # Voids 2 3 2 Result Diagram: 06/20/16 0605 06/21/16 1000 Objective Remarks GENERAL: MNMN WM, NAD SKIN: Warm and dry. HEAD: Normocephalic. EYES: No scleral icterus. No injection or drainage. NECK: Supple, trachea midline. No JVD or lymphadenopathy. CARDIOVASCULAR: Regular rate and rhythm without murmurs, gallops, or rubs. RESPIRATORY: Breath sounds equal bilaterally. No accessory muscle use. GASTROINTESTINAL: Abdomen soft, non-tender, nondistended. MUSCULOSKELETAL: No cyanosis, or edema. BACK: Nontender without obvious deformity. No CVA tenderness. A/P Assessment and Plan Right lung cavitary lesion, infection vs malig Hemoptysis Weight loss Nicotine use PLAN: Cont Abx Vanco and Zosyn per ID Check cultures monitor hemoptysis Kayode Cheema MD Jun 21, 2016 19:27
[2016-06-22] MEDS ORDERED: PHARMACY ORDERED LAB ONE (00:45)
[2016-06-22] MEDS ORDERED: diphenhydrAMINE HCL 50 MG/ML VIAL IV PUSH ONE (01:00)
[2016-06-22] MEDS: PIPERACIL-TAZO 3.375 GM PREMIX 50 ML IV SCH ×3 (01:27→18:12)
[2016-06-22] MEDS: VANCOMYCIN 1,500 MG/NS 500 ML IV SCH ×2 (01:27)
[2016-06-22 05:20] VITALS: BP 105/68; PULSE 71; RESP 18; TEMP 98; O2SAT 99
[2016-06-22 08:00] VITALS: BP 105/66; PULSE 65; RESP 16; TEMP 98.1; O2SAT 98
--- NOTE | 2016-06-22 08:11 | HHI.PR ---
Subjective Remarks Cough with some blood in it. No fevers or chills. Doesn't have night sweats. No n/v/d/c. Had a rash on the trunk last night releaved by todd. Objective Vitals Vital Signs Date Time Temp Pulse Resp B/P Pulse Ox O2 Delivery O2 Flow Rate FiO2 06/22/16 05:20 98.0 71 18 105/68 99 06/21/16 23:38 98.4 70 18 124/74 97 06/21/16 20:05 68 20 117/75 95 06/21/16 15:15 98.0 69 18 116/62 96 06/21/16 13:05 96.6 70 18 107/70 95 06/21/16 11:21 97.4 65 16 114/71 98 I/O 06/21/16 06/21/16 06/21/16 06/22/16 06/22/16 06/22/16 07:00 15:00 23:00 07:00 15:00 23:00 Intake Total 480 ml 300 ml Output Total 600 ml Balance -120 ml 300 ml Intake Oral 480 ml 300 ml Output Urine Total 600 ml # Voids 2 1 # Bowel Movements 1 Result Diagram: 06/20/16 0605 06/21/16 1000 Objective Remarks GENERAL: Cachectic looking man with temporal wasting SKIN: No rashes, ecchymoses or lesions. Cool and dry. HEAD: Atraumatic. Normocephalic. No temporal or scalp tenderness. EYES: Pupils equal round and reactive. Extraocular motions intact. No scleral icterus. No injection or drainage. ENT: Nose without bleeding, purulent drainage or septal hematoma. Throat without erythema, tonsillar hypertrophy or exudate. Uvula midline. Airway patent. NECK: Trachea midline. No JVD or lymphadenopathy. Supple, nontender, no meningeal signs. CARDIOVASCULAR: Regular rate and rhythm without murmurs, gallops, or rubs. RESPIRATORY: Clear to auscultation. Breath sounds decreased bilaterally. No wheezes, rales, or rhonchi. GASTROINTESTINAL: Abdomen soft, non-tender, nondistended. No hepato-splenomegaly , or palpable masses. No guarding. MUSCULOSKELETAL: Extremities without clubbing, cyanosis, or edema. No joint tenderness, effusion, or edema noted. No calf tenderness. Negative Homans sign bilaterally. NEUROLOGICAL: Awake and alert. Cranial nerves II through XII intact. Motor and sensory grossly within normal limits. Five out of 5 muscle strength in all muscle groups. Normal speech. A/P Problem List: (1) Sepsis ICD Code: A41.9 Status: Acute (2) Cavitary lesion of lung ICD Code: J98.4 Status: Acute (3) Pneumonia ICD Code: J18.9 Status: Acute (4) Protein-calorie malnutrition, severe ICD Code: E43 Status: Acute (5) Community acquired bacterial pneumonia ICD Code: J15.9 Status: Acute (6) Aspiration pneumonia ICD Code: J69.0 Status: Acute Assessment and Plan 50-year-old man with Sepsis:Meets sepsis criteria, Temp > 100.9 or < 96.8, WBC > 44429, < 4000 or > 10% bands, Infect source susp/known (Respiratory/ PNA): s/p Vancomycin and Zosyn IV x 1 in ED, continue with Abx pending culture reports Cavitary lesion of the Lung Rule out tuberculosis Rule out malignancy Community acquired Bacterial Pneumonia Aspiration Bacterial Pneumonia -Chest CT noted and reviewed by me with finding of Greater than 5 cm thick walled cavitary lesion in the right apex without central debris within the cavity. Differential considerations include a bacterial infection, fungal infection, and necrotic tumor -Chest x-ray noted and reviewed by me with finding of Possible cavitary opacity in the medial right pulmonary apex -Check Sylvain tuberculosis/RIF, AFP sputum -Check tumor Markers AFP, CEA, Ca 19-9, LDH -Check HIV 1/2 antibodies -Status post Zosyn and vancomycin 1 in ED, continue empiric treatments with antibiotics pending culture report -DuoNeb when necessary and Mucinex -Consult infectious disease specialist -Consultation to pulmonary medicine for eval patient for possible bronchoscopy. 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
[2016-06-22] MEDS: SODIUM CHLORIDE 0.9% FLUSH 10 ML FLUSH IV FLUSH SCH ×2 (09:00→20:36)
[2016-06-22] MEDS: LACTOBACILLUS ACIDOPHILUS TAB PO SCH ×2 (10:20→20:37)
[2016-06-22] MEDS: guaiFENesin E.R. 600 MG TAB PO SCH ×2 (10:20→20:37)
[2016-06-22] MEDS: PANTOPRAZOLE SOD 40 MG DELAYED RELEASE TAB PO SCH (10:20)
[2016-06-22 12:00] VITALS: BP 114/67; PULSE 67; RESP 16; TEMP 97.9; O2SAT 97
[2016-06-22] MEDS: SODIUM CHLOR 0.9% 1000 ML INJ 1,000 ML IV SCH ×2 (12:53→20:36)
[2016-06-22] MEDS: VANCOMYCIN INJ 2,000 MG in SODIUM CHLORID 0.9% 500 ML INJ 500 ML IV SCH (13:00)
--- NOTE | 2016-06-22 13:54 | HHI.IDPN ---
Note Infectious Disease Note Patient coughed up a glob of thick blood this am. No fever. No chest pain. No SOB. AFB smear ordered in Ed - not yet sent. Routine sputum not yet sent. PPD placed 06/21. PAST MEDICAL HISTORY 1. Anxiety. 2. Depression. 3. History of MRSA infection of the right arm. 4. Right elbow surgery. ALLERGIES 1. PENICILLIN. 2. CODEINE. 3. INFLUENZA VIRUS VACCINE. MEDICATIONS 1. Vancomycin. 2. Piperacillin/tazobactam. SOCIAL HISTORY Recently quit smoking three weeks ago. The patient used to smoke a pack of cigarettes a day and has been smoking for 21 years. Occasional alcohol. Denies illicit drugs. OBJECTIVE: Vital Signs Date Time Temp Pulse Resp B/P Pulse Ox O2 Delivery O2 Flow Rate FiO2 06/22/16 12:00 97.9 67 16 114/67 97 06/22/16 08:00 98.1 65 16 105/66 98 06/22/16 05:20 98.0 71 18 105/68 99 06/21/16 23:38 98.4 70 18 124/74 97 06/21/16 20:05 68 20 117/75 95 06/21/16 15:15 98.0 69 18 116/62 96 06/21/16 06/21/16 06/22/16 15:00 23:00 07:00 Intake Total 300 ml Balance 300 ml Intake Oral 300 ml # Voids 1 # Bowel Movements 1 Laboratory Tests Test 06/21/16 10:00 Creatinine 0.95 MG/DL Estimat Glomerular Filtration 84 ML/MIN Rate Microbiology Date/Time Procedure Status Source Growth 06/19/16 17:50 Aerobic Blood Culture - Preliminary Resulted Blood Peripheral NO GROWTH IN 3 DAYS 06/19/16 17:50 Anaerobic Blood Culture - Preliminary Resulted Blood Peripheral NO GROWTH IN 3 DAYS 06/19/16 18:05 Aerobic Blood Culture - Preliminary Resulted Blood Peripheral NO GROWTH IN 3 DAYS 06/19/16 18:05 Anaerobic Blood Culture - Preliminary Resulted Blood Peripheral NO GROWTH IN 3 DAYS 06/20/16 10:00 Acid Fast Stain - Final Resulted Sputum Expectorated Sputum NO ACID FAST BACILLI SEEN 06/20/16 10:00 Mycobacterial Culture Resulted Sputum Expectorated Sputum Pending HIV negative. IMAGING: Chest X-Ray 06/19/16 0000 Signed Impressions: Service Date/Time: Sunday, June 19, 2016 16:39 - CONCLUSION: Possible cavitary opacity in the medial right pulmonary apex. Recommend further characterization with noncontrast CT thorax. Arash Chapman MD Chest CT 06/19/16 0000 Signed Impressions: Service Date/Time: Sunday, June 19, 2016 18:28 - CONCLUSION: Greater than 5 cm thickwalled cavitary lesion in the right apex without central debris within the cavity. Differential considerations include a bacterial infection, fungal infection, and necrotic tumor. No evidence of mediastinal adenopathy or pleural effusion. Arash Chapman MD PHYSICAL EXAMINATION GENERAL: No acute distress. He is awake, alert and oriented. HEENT: Extraocular movements grossly intact. Pupils reactive to light. No icterus. Oropharynx no visible lesions, no thrush. NECK: Supple. No adenopathy or swelling. LUNGS: Decreased breath sounds. No audible rhonchi. HEART: Regular rate and rhythm without murmurs, rubs or gallops. ABDOMEN: Bowel sounds present. Soft, nontender. EXTREMITIES: No clubbing, cyanosis or edema. SKIN: No rash. The skin of the extremities have a chronic sunburn appearance. NEUROLOGIC: Nonfocal. PSYCHIATRIC: Patient calm and cooperative. IMPRESSION 1. Cavitary lung lesion. 2. Pneumonia due to bacterial versus tuberculosis versus fungus vs TB. 3. Rule out malignancy. 4. Sepsis based on presentation of fever along with leukocytosis and suspected pneumonia. RECOMMENDATIONS 1. Continue vancomycin. 2. Continue piperacillin/tazobactam. 3. Follow the AFB of the sputum and routine sputum culture. 4. Monitor clinical status. 5. Consider bronchoscopy if sputum culture is negative. Kalpesh Hurst MD Jun 22, 2016 13:54
[2016-06-22] MEDS: SKIN TEST RESULT SCH (14:00)
[2016-06-22 16:00] VITALS: BP 115/71; PULSE 67; RESP 16; TEMP 98; O2SAT 98
--- NOTE | 2016-06-22 19:44 | HHI.PR ---
Subjective Remarks YOWM with RUL cavitary lesion, hemoptysis Still has cough and sputum No fever no new complaint Objective Vital Signs Vital Signs Date Time Temp Pulse Resp B/P Pulse Ox O2 Delivery O2 Flow Rate FiO2 06/22/16 16:00 98.0 67 16 115/71 98 06/22/16 12:00 97.9 67 16 114/67 97 06/22/16 08:00 98.1 65 16 105/66 98 06/22/16 05:20 98.0 71 18 105/68 99 06/21/16 23:38 98.4 70 18 124/74 97 06/21/16 20:05 68 20 117/75 95 I/O 06/21/16 06/21/16 06/21/16 06/22/16 06/22/16 06/22/16 07:00 15:00 23:00 07:00 15:00 23:00 Intake Total 480 ml 300 ml 3342 ml Output Total 600 ml 600 ml Balance -120 ml 300 ml 2742 ml Intake Oral 480 ml 300 ml 960 ml IV Total 2382 ml Output Urine Total 600 ml 600 ml # Voids 2 1 # Bowel Movements 1 4 Result Diagram: 06/20/16 0605 06/21/16 1000 Objective Remarks GENERAL: MNMN WM, NAD SKIN: Warm and dry. HEAD: Normocephalic. EYES: No scleral icterus. No injection or drainage. NECK: Supple, trachea midline. No JVD or lymphadenopathy. CARDIOVASCULAR: Regular rate and rhythm without murmurs, gallops, or rubs. RESPIRATORY: Breath sounds equal bilaterally. No accessory muscle use. GASTROINTESTINAL: Abdomen soft, non-tender, nondistended. MUSCULOSKELETAL: No cyanosis, or edema. BACK: Nontender without obvious deformity. No CVA tenderness. A/P Assessment and Plan Right lung cavitary lesion, infection vs malig Hemoptysis Weight loss Nicotine use PLAN: Cont Abx Vanco and Zosyn per ID Check cultures Hemoptysis resolved Check AFB culture Kayode Cheema MD Jun 22, 2016 19:44
[2016-06-22 20:00] VITALS: BP 114/66; PULSE 70; RESP 18; TEMP 97.9; O2SAT 96
[2016-06-22] MEDS: diphenhydrAMINE HCL 25 MG CAP PO PRN (20:37)
[2016-06-23] VITALS: BP 126/79; PULSE 72; RESP 20; TEMP 98; O2SAT 97
[2016-06-23] MEDS: PIPERACIL-TAZO 3.375 GM PREMIX 50 ML IV SCH ×3 (01:51→16:35)
[2016-06-23] MEDS: VANCOMYCIN INJ 2,000 MG in SODIUM CHLORID 0.9% 500 ML INJ 500 ML IV SCH ×2 (02:11→12:51)
[2016-06-23] MEDS: SODIUM CHLOR 0.9% 1000 ML INJ 1,000 ML IV SCH ×3 (02:42→22:46)
[2016-06-23 08:00] VITALS: BP 100/55; PULSE 63; RESP 18; TEMP 98.5; O2SAT 99
[2016-06-23] MEDS: guaiFENesin E.R. 600 MG TAB PO SCH ×2 (09:36→21:26)
[2016-06-23] MEDS: PANTOPRAZOLE SOD 40 MG DELAYED RELEASE TAB PO SCH (09:36)
[2016-06-23] MEDS: diphenhydrAMINE HCL 25 MG CAP PO PRN ×2 (09:36→21:30)
[2016-06-23] MEDS: LACTOBACILLUS ACIDOPHILUS TAB PO SCH ×2 (09:36→21:26)
[2016-06-23 12:00] VITALS: BP 105/65; PULSE 64; RESP 18; TEMP 98.4; O2SAT 98
[2016-06-23] MEDS: SODIUM CHLORIDE 0.9% FLUSH 10 ML FLUSH IV FLUSH SCH ×2 (12:51→21:00)
--- NOTE | 2016-06-23 13:58 | HHI.PR ---
Subjective Remarks Appears in nad. Says she has less cough and no blood in it. NO sweating. Eating well. No pain. Objective Vitals Vital Signs Date Time Temp Pulse Resp B/P Pulse Ox O2 Delivery O2 Flow Rate FiO2 06/23/16 12:00 98.4 64 18 105/65 98 06/23/16 08:00 98.5 63 18 100/55 99 06/23/16 00:00 98.0 72 20 126/79 97 06/22/16 20:00 97.9 70 18 114/66 96 06/22/16 16:00 98.0 67 16 115/71 98 I/O 06/22/16 06/22/16 06/22/16 06/23/16 06/23/16 06/23/16 07:00 15:00 23:00 07:00 15:00 23:00 Intake Total 300 ml 3342 ml 246 ml 720 ml Output Total 600 ml Balance 300 ml 2742 ml 246 ml 720 ml Intake Oral 300 ml 960 ml 720 ml IV Total 2382 ml 246 ml Output Urine Total 600 ml # Voids 1 10 # Bowel Movements 1 4 Result Diagram: 06/20/16 0605 06/23/16 0520 Imaging Last Impressions Chest X-Ray 06/19/16 0000 Signed Impressions: Service Date/Time: Sunday, June 19, 2016 16:39 - CONCLUSION: Possible cavitary opacity in the medial right pulmonary apex. Recommend further characterization with noncontrast CT thorax. Arash Chapman MD Chest CT 06/19/16 0000 Signed Impressions: Service Date/Time: Sunday, June 19, 2016 18:28 - CONCLUSION: Greater than 5 cm thickwalled cavitary lesion in the right apex without central debris within the cavity. Differential considerations include a bacterial infection, fungal infection, and necrotic tumor. No evidence of mediastinal adenopathy or pleural effusion. Arash Chapman MD Objective Remarks GENERAL: Cachectic looking man with temporal wasting SKIN: No rashes, ecchymoses or lesions. Cool and dry. HEAD: Atraumatic. Normocephalic. No temporal or scalp tenderness. EYES: Pupils equal round and reactive. Extraocular motions intact. No scleral icterus. No injection or drainage. ENT: Nose without bleeding, purulent drainage or septal hematoma. Throat without erythema, tonsillar hypertrophy or exudate. Uvula midline. Airway patent. NECK: Trachea midline. No JVD or lymphadenopathy. Supple, nontender, no meningeal signs. CARDIOVASCULAR: Regular rate and rhythm without murmurs, gallops, or rubs. RESPIRATORY: Clear to auscultation. Breath sounds decreased bilaterally. No wheezes, rales, or rhonchi. GASTROINTESTINAL: Abdomen soft, non-tender, nondistended. No hepato-splenomegaly , or palpable masses. No guarding. MUSCULOSKELETAL: Extremities without clubbing, cyanosis, or edema. No joint tenderness, effusion, or edema noted. No calf tenderness. Negative Homans sign bilaterally. NEUROLOGICAL: Awake and alert. Cranial nerves II through XII intact. Motor and sensory grossly within normal limits. Five out of 5 muscle strength in all muscle groups. Normal speech. A/P Problem List: (1) Sepsis ICD Code: A41.9 Status: Acute (2) Cavitary lesion of lung ICD Code: J98.4 Status: Acute (3) Pneumonia ICD Code: J18.9 Status: Acute (4) Protein-calorie malnutrition, severe ICD Code: E43 Status: Acute (5) Community acquired bacterial pneumonia ICD Code: J15.9 Status: Acute (6) Aspiration pneumonia ICD Code: J69.0 Status: Acute Assessment and Plan 50-year-old man with Sepsis:Meets sepsis criteria, Temp > 100.9 or < 96.8, WBC > 99936, < 4000 or > 10% bands, Infect source susp/known (Respiratory/ PNA): s/p Vancomycin and Zosyn IV x 1 in ED, continue with Abx pending culture reports Cavitary lesion of the Lung Rule out tuberculosis Rule out malignancy Community acquired Bacterial Pneumonia Aspiration Bacterial Pneumonia -Chest CT noted and reviewed by me with finding of Greater than 5 cm thick walled cavitary lesion in the right apex without central debris within the cavity. Differential considerations include a bacterial infection, fungal infection, and necrotic tumor -Chest x-ray noted and reviewed by me with finding of Possible cavitary opacity in the medial right pulmonary apex -Check Sylvain tuberculosis/RIF, AFP sputum -Check tumor Markers AFP, CEA, Ca 19-9, LDH -Check HIV 1/2 antibodies -Status post Zosyn and vancomycin 1 in ED, continue empiric treatments with antibiotics pending culture report -DuoNeb when necessary and Mucinex -Consult infectious disease specialist -Consultation to pulmonary medicine for eval patient for possible bronchoscopy. Awaiting ABF if negative plan for bronch per pulm Dr Cheema -Placed in isolation - Sputum neg AFB, cultures pending . Consider bronchoscopy if sputum cultures neg Protein-calorie malnutrition severe Secondary to above Dietary/Director Environmental consult for calorie counts DVT prophylaxis: Bilateral SCDs GI prophylaxis: PPI Code Status Full code Discussed Condition With Patient, nurse Problem Qualifiers (1) Sepsis: Qualified Code: A41.9 - Sepsis, due to unspecified organism (2) Pneumonia: Qualified Code: J18.9 - Pneumonia of right lung due to infectious organism, unspecified part of lung Yesenia Duran MD Jun 23, 2016 13:58
[2016-06-23] MEDS: SKIN TEST RESULT SCH (14:00)
[2016-06-23 16:00] VITALS: BP 114/64; PULSE 59; RESP 18; TEMP 97.9; O2SAT 96
--- NOTE | 2016-06-23 16:23 | HHI.IDPN ---
Note Infectious Disease Note Patient coughing but no sputum today. Not yet able to get 2nd and 3rd AFB specimen. No fever. No chest pain. No SOB. AFB smear ordered in Ed - was not sent. Routine sputum ordered in Ed - not sent. PPD placed 06/21. no reaction. HIV negative. PAST MEDICAL HISTORY 1. Anxiety. 2. Depression. 3. History of MRSA infection of the right arm. 4. Right elbow surgery. ALLERGIES 1. PENICILLIN. 2. CODEINE. 3. INFLUENZA VIRUS VACCINE. MEDICATIONS 1. Vancomycin. 2. Piperacillin/tazobactam. SOCIAL HISTORY Recently quit smoking three weeks ago. The patient used to smoke a pack of cigarettes a day and has been smoking for 21 years. Occasional alcohol. Denies illicit drugs. OBJECTIVE: Vital Signs Date Time Temp Pulse Resp B/P Pulse Ox O2 Delivery O2 Flow Rate FiO2 06/23/16 12:00 98.4 64 18 105/65 98 06/23/16 08:00 98.5 63 18 100/55 99 06/23/16 00:00 98.0 72 20 126/79 97 06/22/16 20:00 97.9 70 18 114/66 96 06/22/16 06/22/16 06/23/16 15:00 23:00 07:00 Intake Total 3342 ml 246 ml 720 ml Output Total 600 ml Balance 2742 ml 246 ml 720 ml Intake Oral 960 ml 720 ml IV Total 2382 ml 246 ml Output Urine Total 600 ml # Voids 10 # Bowel Movements 4 Laboratory Tests Test 06/23/16 05:20 Creatinine 0.92 MG/DL Estimat Glomerular Filtration 87 ML/MIN Rate Microbiology Date/Time Procedure Status Source Growth 06/19/16 17:50 Aerobic Blood Culture - Preliminary Resulted Blood Peripheral NO GROWTH IN 3 DAYS 06/19/16 17:50 Anaerobic Blood Culture - Preliminary Resulted Blood Peripheral NO GROWTH IN 3 DAYS 06/19/16 18:05 Aerobic Blood Culture - Preliminary Resulted Blood Peripheral NO GROWTH IN 3 DAYS 06/19/16 18:05 Anaerobic Blood Culture - Preliminary Resulted Blood Peripheral NO GROWTH IN 3 DAYS 06/20/16 10:00 Acid Fast Stain - Final Resulted Sputum Expectorated Sputum NO ACID FAST BACILLI SEEN 06/20/16 10:00 Mycobacterial Culture Resulted Sputum Expectorated Sputum Pending IMAGING: Chest X-Ray 06/19/16 0000 Signed Impressions: Service Date/Time: Sunday, June 19, 2016 16:39 - CONCLUSION: Possible cavitary opacity in the medial right pulmonary apex. Recommend further characterization with noncontrast CT thorax. Arash Chapman MD Chest CT 06/19/16 0000 Signed Impressions: Service Date/Time: Sunday, June 19, 2016 18:28 - CONCLUSION: Greater than 5 cm thickwalled cavitary lesion in the right apex without central debris within the cavity. Differential considerations include a bacterial infection, fungal infection, and necrotic tumor. No evidence of mediastinal adenopathy or pleural effusion. Arash Chapman MD PHYSICAL EXAMINATION GENERAL: No acute distress. Awake, alert and oriented. HEENT: icterus. Oropharynx no visible lesions, no thrush. NECK: Supple. No adenopathy or swelling. LUNGS: Decreased breath sounds. No audible rhonchi. HEART: Regular rate and rhythm without murmurs, rubs or gallops. ABDOMEN: Bowel sounds present. Soft, nontender. EXTREMITIES: No clubbing, cyanosis or edema. SKIN: No rash. The skin of the extremities have a chronic sunburn appearance. NEUROLOGIC: Nonfocal. PSYCHIATRIC: Patient calm and cooperative. IMPRESSION 1. Cavitary lung lesion. 2. Pneumonia due to bacterial versus tuberculosis versus fungus. 3. Rule out malignancy. 4. Sepsis based on presentation of fever along with leukocytosis and suspected pneumonia. Patient not producing sputum and therefore unable to repeat culture and skin test for TB unreactive. RECOMMENDATIONS 1. Continue vancomycin. 2. Continue piperacillin/tazobactam. 3. Bronchoscopy for diagnosis. 4. Follow the AFB of the sputum and routine sputum culture. 5. Monitor clinical status. Kalpesh Hurst MD Jun 23, 2016 16:23
[2016-06-23 20:00] VITALS: BP 136/71; PULSE 71; RESP 16; TEMP 98; O2SAT 99
--- NOTE | 2016-06-23 20:22 | HHI.PR ---
Subjective Remarks YOWM with RUL cavitary lesion, hemoptysis Still has cough and sputum No fever no new complaint Not producing sp Objective Vital Signs Vital Signs Date Time Temp Pulse Resp B/P Pulse Ox O2 Delivery O2 Flow Rate FiO2 06/23/16 16:00 97.9 59 18 114/64 96 06/23/16 12:00 98.4 64 18 105/65 98 06/23/16 08:00 98.5 63 18 100/55 99 06/23/16 00:00 98.0 72 20 126/79 97 I/O 06/22/16 06/22/16 06/22/16 06/23/16 06/23/16 06/23/16 07:00 15:00 23:00 07:00 15:00 23:00 Intake Total 300 ml 3342 ml 246 ml 720 ml 2568 ml Output Total 600 ml Balance 300 ml 2742 ml 246 ml 720 ml 2568 ml Intake Oral 300 ml 960 ml 720 ml 1160 ml IV Total 2382 ml 246 ml 1408 ml Output Urine Total 600 ml # Voids 1 10 5 # Bowel Movements 1 4 5 Result Diagram: 06/20/16 0605 06/23/16 0520 Objective Remarks GENERAL: MNMN WM, NAD SKIN: Warm and dry. HEAD: Normocephalic. EYES: No scleral icterus. No injection or drainage. NECK: Supple, trachea midline. No JVD or lymphadenopathy. CARDIOVASCULAR: Regular rate and rhythm without murmurs, gallops, or rubs. RESPIRATORY: Breath sounds equal bilaterally. No accessory muscle use. GASTROINTESTINAL: Abdomen soft, non-tender, nondistended. MUSCULOSKELETAL: No cyanosis, or edema. BACK: Nontender without obvious deformity. No CVA tenderness. A/P Assessment and Plan Right lung cavitary lesion, infection vs malig Hemoptysis Weight loss Nicotine use PLAN: Cont Abx Vanco and Zosyn per ID Check cultures Hemoptysis resolved Will proceed with bronch Pt agrees Kayode Cheema MD Jun 23, 2016 20:22
[2016-06-23 21:24] LABS: BASOPHIL # 0.1 TH/MM3 (0-0.2); BASOPHIL % 0.7 % (0.0-2.0); EOSINOPHIL # 0.4 TH/MM3 (0-0.4); EOSINOPHIL % 5.4 % (0.0-4.0); HEMO FLAGS DIFF FINAL; LYMPH % 26.1 % (9.0-44.0); LYMPHOCYTE # 1.9 TH/MM3 (1.0-4.8); MEAN CELL VOLUME 92.2 FL (80.0-100.0); MEAN CORPUSCULAR HEMOGLOBIN 31.3 PG (27.0-34.0); NEUT % 56.8 % (16.0-70.0); PLATELET COUNT 225 TH/MM3 (150-450); RED BLOOD COUNT 4.12 MIL/MM3 (4.50-5.90); RED CELL DISTRIBUTION WIDTH 13.5 % (11.6-17.2); WHITE BLOOD COUNT 7.1 TH/MM3 (4.0-11.0)
[2016-06-23 21:28] LABS: APTT (PATIENT) 27.8 SEC (24.3-30.1); INTERNATIONAL NORMALIZED RATIO 1.1 RATIO; PROTHROMBIN TIME - PATIENT 11.7 SEC (9.8-11.6)
[2016-06-23 21:30] LABS: BICARBONATE 28.9 MEQ/L (21.0-32.0)
[2016-06-24] VITALS: BP 123/79; PULSE 65; RESP 14; TEMP 97.9; O2SAT 97
[2016-06-24] MEDS ORDERED: PHARMACY ORDERED LAB ONE (00:45)
[2016-06-24] MEDS: VANCOMYCIN INJ 2,000 MG in SODIUM CHLORID 0.9% 500 ML INJ 500 ML IV SCH ×2 (01:16→12:03)
[2016-06-24] MEDS: PIPERACIL-TAZO 3.375 GM PREMIX 50 ML IV SCH ×3 (03:06→17:19)
[2016-06-24 04:00] VITALS: BP 114/63; PULSE 58; RESP 16; TEMP 97.8; O2SAT 97
[2016-06-24] MEDS: SODIUM CHLOR 0.9% 1000 ML INJ 1,000 ML IV SCH ×2 (05:45→11:23)
[2016-06-24 08:00] VITALS: BP 112/68; PULSE 55; RESP 17; TEMP 97.9; O2SAT 98
--- NOTE | 2016-06-24 08:10 | HHI.PR ---
Subjective Remarks In bed, says he is coughing nonproductive cough now. No fevrs or chills ivernight. No n/v/d/c. Eating well , no anorexia. Plan for bronch in the afternoon. Objective Vitals Vital Signs Date Time Temp Pulse Resp B/P Pulse Ox O2 Delivery O2 Flow Rate FiO2 06/24/16 04:00 97.8 58 16 114/63 97 06/24/16 00:00 97.9 65 14 123/79 97 06/23/16 20:00 98.0 71 16 136/71 99 06/23/16 16:00 97.9 59 18 114/64 96 06/23/16 12:00 98.4 64 18 105/65 98 I/O 06/23/16 06/23/16 06/23/16 06/24/16 06/24/16 06/24/16 07:00 15:00 23:00 07:00 15:00 23:00 Intake Total 720 ml 2568 ml 240 ml 1126 ml Balance 720 ml 2568 ml 240 ml 1126 ml Intake Oral 720 ml 1160 ml 240 ml 100 ml IV Total 1408 ml 1026 ml # Voids 10 5 6 4 # Bowel Movements 5 0 1 Result Diagram: 06/23/16210206/23/162102 Imaging Last Impressions Chest X-Ray 06/19/16 0000 Signed Impressions: Service Date/Time: Sunday, June 19, 2016 16:39 - CONCLUSION: Possible cavitary opacity in the medial right pulmonary apex. Recommend further characterization with noncontrast CT thorax. Arash Chapman MD Chest CT 06/19/16 0000 Signed Impressions: Service Date/Time: Sunday, June 19, 2016 18:28 - CONCLUSION: Greater than 5 cm thickwalled cavitary lesion in the right apex without central debris within the cavity. Differential considerations include a bacterial infection, fungal infection, and necrotic tumor. No evidence of mediastinal adenopathy or pleural effusion. Arash Chapman MD Objective Remarks GENERAL: Cachectic looking man with temporal wasting SKIN: No rashes, ecchymoses or lesions. Cool and dry. HEAD: Atraumatic. Normocephalic. No temporal or scalp tenderness. EYES: Pupils equal round and reactive. Extraocular motions intact. No scleral icterus. No injection or drainage. ENT: Nose without bleeding, purulent drainage or septal hematoma. Throat without erythema, tonsillar hypertrophy or exudate. Uvula midline. Airway patent. NECK: Trachea midline. No JVD or lymphadenopathy. Supple, nontender, no meningeal signs. CARDIOVASCULAR: Regular rate and rhythm without murmurs, gallops, or rubs. RESPIRATORY: Clear to auscultation. Breath sounds decreased bilaterally. No wheezes, rales, or rhonchi. GASTROINTESTINAL: Abdomen soft, non-tender, nondistended. No hepato-splenomegaly , or palpable masses. No guarding. MUSCULOSKELETAL: Extremities without clubbing, cyanosis, or edema. No joint tenderness, effusion, or edema noted. No calf tenderness. Negative Homans sign bilaterally. NEUROLOGICAL: Awake and alert. Cranial nerves II through XII intact. Motor and sensory grossly within normal limits. Five out of 5 muscle strength in all muscle groups. Normal speech. A/P Problem List: (1) Sepsis ICD Code: A41.9 Status: Acute (2) Cavitary lesion of lung ICD Code: J98.4 Status: Acute (3) Pneumonia ICD Code: J18.9 Status: Acute (4) Protein-calorie malnutrition, severe ICD Code: E43 Status: Acute (5) Community acquired bacterial pneumonia ICD Code: J15.9 Status: Acute (6) Aspiration pneumonia ICD Code: J69.0 Status: Acute Assessment and Plan 50-year-old man with Sepsis:With sepsis criteria on admission, Temp > 100.9 or < 96.8, WBC > 54935, < 4000 or > 10% bands, Infect source susp/known (Respiratory/ PNA): s/p Vancomycin and Zosyn IV x 1 in ED, continue with Abx pending culture reports Cavitary lesion of the Lung Rule out tuberculosis Rule out malignancy Community acquired Bacterial Pneumonia Aspiration Bacterial Pneumonia -Chest CT noted and reviewed by me with finding of Greater than 5 cm thick walled cavitary lesion in the right apex without central debris within the cavity. Differential considerations include a bacterial infection, fungal infection, and necrotic tumor -Chest x-ray noted and reviewed by me with finding of Possible cavitary opacity in the medial right pulmonary apex -Check Sylvain tuberculosis/RIF, AFP sputum -Check tumor Markers AFP, CEA, Ca 19-9, LDH -Check HIV 1/2 antibodies -Status post Zosyn and vancomycin 1 in ED, continue empiric treatments with antibiotics pending culture report -DuoNeb when necessary and Mucinex -Consult infectious disease specialist, Dr Hurst following -Consultation to pulmonary medicine for eval patient for possible bronchoscopy. Awaiting ABF if negative plan for bronch per pulm Dr Cheema -Placed in isolation - Sputum neg AFB, cultures pending . Plan for bronchoscopy 06/[address] Cheema Protein-calorie malnutrition severe Secondary to above Dietary/Surgical Garment Inspector consult for calorie counts DVT prophylaxis: Bilateral SCDs GI prophylaxis: PPI Code Status Full code Discussed Condition With Patient, nurse Problem Qualifiers (1) Sepsis: Qualified Code: A41.9 - Sepsis, due to unspecified organism (2) Pneumonia: Qualified Code: J18.9 - Pneumonia of right lung due to infectious organism, unspecified part of lung Yesenia Duran MD Jun 24, 2016 08:10
[2016-06-24] MEDS: PANTOPRAZOLE SOD 40 MG DELAYED RELEASE TAB PO SCH (08:22)
[2016-06-24] MEDS: LACTOBACILLUS ACIDOPHILUS TAB PO SCH ×2 (08:22→21:24)
[2016-06-24] MEDS: guaiFENesin E.R. 600 MG TAB PO SCH ×2 (08:22→21:24)
[2016-06-24] MEDS: SODIUM CHLORIDE 0.9% FLUSH 10 ML FLUSH IV FLUSH SCH ×2 (08:22→21:24)
[2016-06-24 12:00] VITALS: BP 118/53; PULSE 51; RESP 17; TEMP 97.6; O2SAT 97
[2016-06-24] MEDS ORDERED: PROPOFOL 200 MG/20 ML AMP IV ONE (12:00)
[2016-06-24] MEDS: SKIN TEST RESULT SCH (13:23)
[2016-06-24 16:00] VITALS: BP 137/76; PULSE 52; RESP 19; TEMP 97.6; O2SAT 98
--- NOTE | 2016-06-24 19:59 | HHI.PR ---
Subjective Remarks YOWM with RUL cavitary lesion, hemoptysis Still has cough and sputum No fever bronch done no endobronchial lesion or erythema Objective Vital Signs Vital Signs Date Time Temp Pulse Resp B/P Pulse Ox O2 Delivery O2 Flow Rate FiO2 06/24/16 16:00 97.6 52 19 137/76 98 06/24/16 12:00 97.6 51 17 118/53 97 06/24/16 08:00 97.9 55 17 112/68 98 06/24/16 04:00 97.8 58 16 114/63 97 06/24/16 00:00 97.9 65 14 123/79 97 06/23/16 20:00 98.0 71 16 136/71 99 I/O 06/23/16 06/23/16 06/23/16 06/24/16 06/24/16 06/24/16 07:00 15:00 23:00 07:00 15:00 23:00 Intake Total 720 ml 2568 ml 240 ml 1126 ml Balance 720 ml 2568 ml 240 ml 1126 ml Intake Oral 720 ml 1160 ml 240 ml 100 ml IV Total 1408 ml 1026 ml # Voids 10 5 6 4 8 # Bowel Movements 5 0 1 2 Result Diagram: 06/23/16210206/23/162102 Objective Remarks GENERAL: MNMN WM, NAD SKIN: Warm and dry. HEAD: Normocephalic. EYES: No scleral icterus. No injection or drainage. NECK: Supple, trachea midline. No JVD or lymphadenopathy. CARDIOVASCULAR: Regular rate and rhythm without murmurs, gallops, or rubs. RESPIRATORY: Breath sounds equal bilaterally. No accessory muscle use. GASTROINTESTINAL: Abdomen soft, non-tender, nondistended. MUSCULOSKELETAL: No cyanosis, or edema. BACK: Nontender without obvious deformity. No CVA tenderness. A/P Assessment and Plan Right lung cavitary lesion, infection vs malig Hemoptysis Weight loss Nicotine use PLAN: Cont Abx Vanco and Zosyn per ID Check cultures Hemoptysis resolved Check cxr and bronch results Kayode Cheema MD Jun 24, 2016 19:59
[2016-06-24 20:00] VITALS: BP 118/71; PULSE 63; RESP 20; TEMP 97.8; O2SAT 100
[2016-06-24] MEDS ORDERED: RESP: ALBUTEROL 2.5 MG/3 ML NEB (SCH) ONE (20:31)
[2016-06-24] MEDS ORDERED: RESP: LIDOCAINE HCL 4% PF 5 ML NEB ONE (20:32)
[2016-06-24] MEDS ORDERED: DO NOT ADM ANY ANTICOAGULANT DRUGS PRN (21:15)
[2016-06-24] MEDS: diphenhydrAMINE HCL 25 MG CAP PO PRN (21:24)
--- NOTE | 2016-06-24 21:24 | RADRPT ---
EXAM DATE/TIME: 06/24/2016 20:22 [facility] COMPARISON: CHEST PA & LAT, June 19, 2016, 16:39. CT THORAX W CONTRAST, June 19, 2016, 18:28. INDICATIONS : Rule out pneumothorax. MEDICAL HISTORY : Diabetes mellitus type II. SURGICAL HISTORY : None. ENCOUNTER: Subsequent ACUITY: 1 day PAIN SCORE: 0/10 LOCATION: Bilateral chest FINDINGS: The heart size is normal. There continues to be increased density in the medial right upper lung. T here also appears to be some mild increased density in the lateral right midlung. The left lung is c lear. No effusion is seen. CONCLUSION: Persistent consolidation at the medial right upper lobe and possibly at the lateral r ight midlung. Hilario Morin MD on June 24, 2016 at 21:11 Board Certified Radiologist. This report was verified electronically.
--- NOTE | 2016-06-24 23:17 | MR ---
cc: JACQUES JOSHUA MD DATE 06/24/16 PROCEDURE Bronchoscopy PREOPERATIVE DIAGNOSIS Right upper lobe cavitary mass. POSTOPERATIVE DIAGNOSIS No endobronchial lesions seen. PROCEDURE IN DETAIL Informed consent was obtained from the patient. Procedure and complications including complication of anesthesia, pneumothorax requiring chest tube, bleeding complication, injury to blood vessels, lungs, nerves arrhythmia, hypoxia and possibility of nondiagnostic biopsy was explained and he consented for the procedure. The patient was brought to endoscopy suite under general anesthesia, LMA tube was placed by anesthesiologist. bronchoscopy was done through LMA tube. Main julia is normal. The distal trachea is normal. Bronchoscope advanced to the left lung, left upper lingula lower lobe were visualized, no endobronchial mucosal lesions seen. Then bronchoscope pulled across to the right, right upper lingula, right upper, middle lower lobe visualized, no endobronchial mucosal lesions seen. No erythema seen. Right upper lobe brushing, biopsy and washings were done. Biopsy sent for pathology. Brushings sent for cytology and washings sent for cytology. Routine culture, AB fungal culture. Postprocedure chest x-ray ordered to rule out pneumothorax. MD MARGE Amaya/ /7:59 PM /11:03 PM MTDJeanie
[2016-06-25] VITALS: BP 137/78; PULSE 80; RESP 20; TEMP 98.1; O2SAT 100
[2016-06-25] MEDS ORDERED: PHARMACY ORDERED LAB ONE (00:45)
[2016-06-25] MEDS: VANCOMYCIN INJ 2,000 MG in SODIUM CHLORID 0.9% 500 ML INJ 500 ML IV SCH (00:50)
[2016-06-25] MEDS: PIPERACIL-TAZO 3.375 GM PREMIX 50 ML IV SCH ×3 (02:59→17:32)
[2016-06-25 04:00] VITALS: BP 96/53; PULSE 81; RESP 20; TEMP 98; O2SAT 97
[2016-06-25] MEDS: SODIUM CHLOR 0.9% 1000 ML INJ 1,000 ML IV SCH ×2 (05:11→12:27)
[2016-06-25 08:00] VITALS: BP 98/58; PULSE 50; RESP 12; TEMP 98.2; O2SAT 98
[2016-06-25] MEDS: PANTOPRAZOLE SOD 40 MG DELAYED RELEASE TAB PO SCH (08:51)
[2016-06-25] MEDS: LACTOBACILLUS ACIDOPHILUS TAB PO SCH ×2 (08:51→20:31)
[2016-06-25] MEDS: SODIUM CHLORIDE 0.9% FLUSH 10 ML FLUSH IV FLUSH SCH ×2 (08:51→20:31)
[2016-06-25] MEDS: guaiFENesin E.R. 600 MG TAB PO SCH ×2 (08:51→20:31)
[2016-06-25 12:00] VITALS: BP 112/80; PULSE 63; RESP 16; TEMP 97.9; O2SAT 97
[2016-06-25] MEDS: VANCOMYCIN 1,500 MG/NS 500 ML IV SCH ×2 (12:27)
[2016-06-25 16:00] VITALS: BP 104/59; PULSE 55; RESP 20; TEMP 98.2; O2SAT 98
--- NOTE | 2016-06-25 18:09 | HHI.PR ---
Subjective Remarks YOWM with RUL cavitary lesion, hemoptysis Still has cough and sputum No fever bronch done no endobronchial lesion or erythema No new complaint Objective Vital Signs Vital Signs Date Time Temp Pulse Resp B/P Pulse Ox O2 Delivery O2 Flow Rate FiO2 06/25/16 16:00 98.2 55 20 104/59 98 06/25/16 12:00 97.9 63 16 112/80 97 06/25/16 08:00 98.2 50 12 98/58 98 06/25/16 04:00 98.0 81 20 96/53 97 06/25/16 00:00 98.1 80 20 137/78 100 06/24/16 20:55 98.0 75 22 122/70 100 Nasal Cannula 3 06/24/16 20:45 75 22 122/70 100 Nasal Cannula 3 06/24/16 20:30 104 22 139/90 99 Nasal Cannula 3 06/24/16 20:23 97.6 106 22 136/84 98 Nasal Cannula 3 06/24/16 20:00 97.8 63 20 118/71 100 I/O 06/24/16 06/24/16 06/24/16 06/25/16 06/25/16 06/25/16 07:00 15:00 23:00 07:00 15:00 23:00 Intake Total 1126 ml 890 ml 1482 ml 600 ml Balance 1126 ml 890 ml 1482 ml 600 ml Intake Oral 100 ml 360 ml 440 ml 600 ml IV Total 1026 ml 30 ml 1042 ml Other 500 ml # Voids 4 8 1 4 # Bowel Movements 1 2 0 1 Result Diagram: 06/23/16210206/25/16 0735 Objective Remarks GENERAL: MNMN WM, NAD SKIN: Warm and dry. HEAD: Normocephalic. EYES: No scleral icterus. No injection or drainage. NECK: Supple, trachea midline. No JVD or lymphadenopathy. CARDIOVASCULAR: Regular rate and rhythm without murmurs, gallops, or rubs. RESPIRATORY: Breath sounds equal bilaterally. No accessory muscle use. GASTROINTESTINAL: Abdomen soft, non-tender, nondistended. MUSCULOSKELETAL: No cyanosis, or edema. BACK: Nontender without obvious deformity. No CVA tenderness. A/P Assessment and Plan Right lung cavitary lesion, infection vs malig Hemoptysis Weight loss Nicotine use PLAN: Cont Abx Vanco and Zosyn per ID Check cultures Hemoptysis resolved Check bronch results Kayode Cheema MD Jun 25, 2016 18:09
[2016-06-25 20:00] VITALS: BP 128/71; PULSE 54; RESP 18; TEMP 97.9; O2SAT 98
--- NOTE | 2016-06-25 21:09 | HHI.PR ---
Subjective Remarks Patient seen this morning around 11 AM. Says he is feeling all right. Denies any hemoptysis. Shortness of breath improving. Still with pleuritic right upper chest pain. Objective Vital Signs Date Time Temp Pulse Resp B/P Pulse Ox O2 Delivery O2 Flow Rate FiO2 06/25/16 16:00 98.2 55 20 104/59 98 06/25/16 12:00 97.9 63 16 112/80 97 06/25/16 08:00 98.2 50 12 98/58 98 06/25/16 04:00 98.0 81 20 96/53 97 06/25/16 00:00 98.1 80 20 137/78 100 I/O 06/24/16 06/24/16 06/24/16 06/25/16 06/25/16 06/25/16 07:00 15:00 23:00 07:00 15:00 23:00 Intake Total 1126 ml 890 ml 1482 ml 600 ml Balance 1126 ml 890 ml 1482 ml 600 ml Intake Oral 100 ml 360 ml 440 ml 600 ml IV Total 1026 ml 30 ml 1042 ml Other 500 ml # Voids 4 8 1 4 # Bowel Movements 1 2 0 1 Result Diagram: 06/23/16210206/25/16 0735 Objective Remarks GENERAL: patient lying in bed. Appears comfortable. Alert and oriented 3. SKIN: Warm and dry. HEAD: Normocephalic. EYES: No scleral icterus. No injection or drainage. NECK: Supple, trachea midline. No JVD. CARDIOVASCULAR: Regular rate and rhythm without murmurs, gallops, or rubs. RESPIRATORY: Breath sounds equal bilaterally. No accessory muscle use. GASTROINTESTINAL: Abdomen soft, non-tender, nondistended. MUSCULOSKELETAL: No cyanosis, or edema. BACK: Nontender without obvious deformity. No CVA tenderness. A/P Assessment and Plan 50-year-old man with //Sepsis:With sepsis criteria on admission, Temp > 100.9 or < 96.8, WBC > 16260 , < 4000 or > 10% bands, Infect source susp/known (Respiratory/ PNA): s/p Vancomycin and Zosyn IV x 1 in ED, continue with Abx pending culture reports -06/25. Improving. Continue antibiotics as per ID. //Cavitary lesion of the Lung //Rule out tuberculosis //Rule out malignancy //Community acquired Bacterial Pneumonia //Aspiration Bacterial Pneumonia -Chest CT noted and reviewed by me with finding of Greater than 5 cm thick walled cavitary lesion in the right apex without central debris within the cavity. Differential considerations include a bacterial infection, fungal infection, and necrotic tumor -Chest x-ray noted and reviewed by me with finding of Possible cavitary opacity in the medial right pulmonary apex -Check Sylvain tuberculosis/RIF, AFP sputum -Check tumor Markers AFP, CEA, Ca 19-9, LDH -Check HIV 1/2 antibodies -Status post Zosyn and vancomycin 1 in ED, continue empiric treatments with antibiotics pending culture report -DuoNeb when necessary and Mucinex -Consult infectious disease specialist, Dr Hurst following -Consultation to pulmonary medicine for eval patient for possible bronchoscopy. Awaiting ABF if negative plan for bronch per pulm Dr Cheema -Placed in isolation - Sputum neg AFB, cultures pending . -s/p bronchoscopy 06/[address] Cheema -06/25. Follow up on culture results from bronchoscopy. Continue IV antibiotics. Appreciate pulmonology assistance. //Protein-calorie malnutrition severe Secondary to above Dietary/Photo Colorer consult for calorie counts //DVT prophylaxis: Bilateral SCDs //GI prophylaxis: PPI Discharge Planning awaiting bronchoscopy results. Issa Turk MD Jun 25, 2016 21:08
[2016-06-26] VITALS: BP 112/60; PULSE 57; RESP 18; TEMP 97.8; O2SAT 97
[2016-06-26] MEDS: PIPERACIL-TAZO 3.375 GM PREMIX 50 ML IV SCH ×3 (01:13→17:12)
[2016-06-26] MEDS: VANCOMYCIN 1,500 MG/NS 500 ML IV SCH ×4 (02:03→14:28)
[2016-06-26] MEDS: SODIUM CHLOR 0.9% 1000 ML INJ 1,000 ML IV SCH ×3 (02:04→21:51)
[2016-06-26 04:00] VITALS: BP 123/66; PULSE 55; RESP 18; TEMP 97.8; O2SAT 96
[2016-06-26] MEDS: LACTOBACILLUS ACIDOPHILUS TAB PO SCH ×2 (07:53→19:56)
[2016-06-26] MEDS: PANTOPRAZOLE SOD 40 MG DELAYED RELEASE TAB PO SCH (07:53)
[2016-06-26] MEDS: guaiFENesin E.R. 600 MG TAB PO SCH ×2 (07:53→19:56)
[2016-06-26] MEDS: SODIUM CHLORIDE 0.9% FLUSH 10 ML FLUSH IV FLUSH SCH ×2 (07:54→19:55)
[2016-06-26 08:00] VITALS: BP 129/71; PULSE 54; RESP 16; TEMP 97.8; O2SAT 96
[2016-06-26 12:00] VITALS: BP 109/63; PULSE 64; RESP 20; TEMP 97.8; O2SAT 96
[2016-06-26 16:00] VITALS: BP 112/63; PULSE 59; RESP 16; TEMP 97.9; O2SAT 98
--- NOTE | 2016-06-26 17:20 | HHI.PR ---
Subjective Remarks YOWM with RUL cavitary lesion, hemoptysis Still has cough and sputum No fever bronch done no endobronchial lesion or erythema BAL AFB and Fungal smear neg Objective Vital Signs Vital Signs Date Time Temp Pulse Resp B/P Pulse Ox O2 Delivery O2 Flow Rate FiO2 06/26/16 12:00 97.8 64 20 109/63 96 06/26/16 08:00 97.8 54 16 129/71 96 06/26/16 08:00 Room Air 06/26/16 04:00 97.8 55 18 123/66 96 06/26/16 00:00 97.8 57 18 112/60 97 06/25/16 20:00 97.9 54 18 128/71 98 06/25/16 20:00 Room Air I/O 06/25/16 06/25/16 06/25/16 06/26/16 06/26/16 06/26/16 07:00 15:00 23:00 07:00 15:00 23:00 Intake Total 1482 ml 600 ml 480 ml 280 ml Balance 1482 ml 600 ml 480 ml 280 ml Intake Oral 440 ml 600 ml 480 ml 280 ml IV Total 1042 ml # Voids 4 5 6 # Bowel Movements 0 1 2 Result Diagram: 06/23/16 2103 06/26/16 0700 Objective Remarks GENERAL: MNMN WM, NAD SKIN: Warm and dry. HEAD: Normocephalic. EYES: No scleral icterus. No injection or drainage. NECK: Supple, trachea midline. No JVD or lymphadenopathy. CARDIOVASCULAR: Regular rate and rhythm without murmurs, gallops, or rubs. RESPIRATORY: Breath sounds equal bilaterally. No accessory muscle use. GASTROINTESTINAL: Abdomen soft, non-tender, nondistended. MUSCULOSKELETAL: No cyanosis, or edema. BACK: Nontender without obvious deformity. No CVA tenderness. A/P Assessment and Plan Right lung cavitary lesion, infection vs malig Hemoptysis Weight loss Nicotine use PLAN: Cont Abx Vanco and Zosyn per ID Check cultures Hemoptysis resolved Check bronch results Kayode Cheema MD Jun 26, 2016 17:20
[2016-06-26 20:00] VITALS: BP 104/55; PULSE 59; RESP 16; TEMP 97.8; O2SAT 98
--- NOTE | 2016-06-26 23:44 | HHI.PR ---
Subjective Remarks patient seen this afternoon around 2 PM. Says he is feeling all right. sitting up in chair eating. No cough.. Objective Vital Signs Date Time Temp Pulse Resp B/P Pulse Ox O2 Delivery O2 Flow Rate FiO2 06/26/16 20:00 97.8 59 16 104/55 98 06/26/16 20:00 Room Air 06/26/16 16:00 97.9 59 16 112/63 98 06/26/16 12:00 97.8 64 20 109/63 96 06/26/16 08:00 97.8 54 16 129/71 96 06/26/16 08:00 Room Air 06/26/16 04:00 97.8 55 18 123/66 96 06/26/16 00:00 97.8 57 18 112/60 97 I/O 06/25/16 06/25/16 06/25/16 06/26/16 06/26/16 06/26/16 07:00 15:00 23:00 07:00 15:00 23:00 Intake Total 1482 ml 600 ml 480 ml 280 ml 1148 ml Balance 1482 ml 600 ml 480 ml 280 ml 1148 ml Intake Oral 440 ml 600 ml 480 ml 280 ml IV Total 1042 ml 1148 ml # Voids 4 5 6 # Bowel Movements 0 1 2 2 Result Diagram: 06/23/16 21006/26/16 0700 Objective Remarks GENERAL: sitting up in chair eating. Appears comfortable. Alert and oriented 3. SKIN: Warm and dry. HEAD: Normocephalic. EYES: No scleral icterus. No injection or drainage. NECK: Supple, trachea midline. No JVD. CARDIOVASCULAR: Regular rate and rhythm without murmurs, gallops, or rubs. RESPIRATORY: Breath sounds equal bilaterally. No accessory muscle use. GASTROINTESTINAL: Abdomen soft, non-tender, nondistended. MUSCULOSKELETAL: No cyanosis, or edema. BACK: Nontender without obvious deformity. No CVA tenderness. A/P Assessment and Plan 50-year-old man with //Sepsis:With sepsis criteria on admission, Temp > 100.9 or < 96.8, WBC > 39608 , < 4000 or > 10% bands, Infect source susp/known (Respiratory/ PNA): s/p Vancomycin and Zosyn IV x 1 in ED, continue with Abx pending culture reports -06/25. Improving. Continue antibiotics as per ID. -06/26. Stable. Follow up bronchoscopy culture. Plan as per pulmonology. //Cavitary lesion of the Lung //Rule out tuberculosis //Rule out malignancy //Community acquired Bacterial Pneumonia //Aspiration Bacterial Pneumonia -Chest CT noted and reviewed by me with finding of Greater than 5 cm thick walled cavitary lesion in the right apex without central debris within the cavity. Differential considerations include a bacterial infection, fungal infection, and necrotic tumor -Chest x-ray noted and reviewed by me with finding of Possible cavitary opacity in the medial right pulmonary apex -Check Sylvain tuberculosis/RIF, AFP sputum -Check tumor Markers AFP, CEA, Ca 19-9, LDH -Check HIV 1/2 antibodies -Status post Zosyn and vancomycin 1 in ED, continue empiric treatments with antibiotics pending culture report -DuoNeb when necessary and Mucinex -Consult infectious disease specialist, Dr Hurst following -Consultation to pulmonary medicine for eval patient for possible bronchoscopy. Awaiting ABF if negative plan for bronch per pulm Dr Cheema -Placed in isolation - Sputum neg AFB, cultures pending . -s/p bronchoscopy 06/[address] Cheema -06/26 Follow up on culture results from bronchoscopy. Continue IV antibiotics. plan as per pulmonology. //Protein-calorie malnutrition severe Secondary to above Dietary/Community Development Specialist consult for calorie counts //DVT prophylaxis: Bilateral SCDs //GI prophylaxis: PPI Discharge Planning awaiting bronchoscopy results. Issa Turk MD Jun 26, 2016 23:44
[2016-06-27] VITALS: BP 128/81; PULSE 73; RESP 19; TEMP 97.8; O2SAT 99
[2016-06-27] MEDS ORDERED: PHARMACY ORDERED LAB ONE (00:45)
[2016-06-27] MEDS: VANCOMYCIN 1,500 MG/NS 500 ML IV SCH ×4 (00:46→12:54)
[2016-06-27 01:15] LABS: VANCOMYCIN TROUGH 18.8 MCG/ML (5.0-10.0)
[2016-06-27] MEDS: PIPERACIL-TAZO 3.375 GM PREMIX 50 ML IV SCH ×2 (02:41→10:00)
[2016-06-27 04:00] VITALS: BP 125/71; PULSE 60; RESP 20; TEMP 97.7; O2SAT 97
[2016-06-27] MEDS: SODIUM CHLOR 0.9% 1000 ML INJ 1,000 ML IV SCH (07:51)
[2016-06-27 08:00] VITALS: BP 124/58; PULSE 62; RESP 20; TEMP 97.7; O2SAT 95
[2016-06-27] MEDS: guaiFENesin E.R. 600 MG TAB PO SCH ×2 (10:00→21:21)
[2016-06-27] MEDS: LACTOBACILLUS ACIDOPHILUS TAB PO SCH ×2 (10:00→21:00)
[2016-06-27] MEDS: SODIUM CHLORIDE 0.9% FLUSH 10 ML FLUSH IV FLUSH SCH ×2 (10:01→21:22)
[2016-06-27] MEDS: PANTOPRAZOLE SOD 40 MG DELAYED RELEASE TAB PO SCH (10:01)
[2016-06-27 12:00] VITALS: BP 117/64; PULSE 61; RESP 16; TEMP 97.6; O2SAT 96
--- NOTE | 2016-06-27 12:04 | HHI.IDPN ---
Note Infectious Disease Note Patient itching of his face and head. Has itching of his back. No fever. No chest pain. No SOB. No significant cough. Bronch. AFB smear - No AFB seen. PPD placed 06/21. no reaction. HIV negative. 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 PAST MEDICAL HISTORY 1. Anxiety. 2. Depression. 3. History of MRSA infection of the right arm. 4. Right elbow surgery. ALLERGIES 1. PENICILLIN. 2. CODEINE. 3. INFLUENZA VIRUS VACCINE. MEDICATIONS 1. Vancomycin. 2. Piperacillin/tazobactam. SOCIAL HISTORY Recently quit smoking three weeks ago. The patient used to smoke a pack of cigarettes a day and has been smoking for 21 years. Occasional alcohol. Denies illicit drugs. OBJECTIVE: Vital Signs Date Time Temp Pulse Resp B/P Pulse Ox O2 Delivery O2 Flow Rate FiO2 06/27/16 08:00 97.7 62 20 124/58 95 06/27/16 08:00 Room Air 06/27/16 04:00 97.7 60 20 125/71 97 06/27/16 00:00 97.8 73 19 128/81 99 06/26/16 20:00 97.8 59 16 104/55 98 06/26/16 20:00 Room Air 06/26/16 16:00 97.9 59 16 112/63 98 06/26/16 12:00 97.8 64 20 109/63 96 06/26/16 06/26/16 06/27/16 15:00 23:00 07:00 Intake Total 1148 ml 720 ml Balance 1148 ml 720 ml Intake Oral 720 ml IV Total 1148 ml # Voids 10 # Bowel Movements 2 Laboratory Tests Test 06/26/16 06/27/16 07:00 00:40 Creatinine 1.00 MG/DL 0.94 MG/DL Estimat Glomerular Filtration 79 ML/MIN 85 ML/MIN Rate Microbiology Date/Time Procedure Status Source Growth 06/24/16 19:00 Gram Stain - Final Complete Bronchial Washings Right Upper Lobe 06/24/16 19:00 Bronchial Culture - Final Complete Bronchial Washings Right Upper Lobe RARE GROWTH NORMAL RESPIRATORY PETER 06/24/16 19:00 Acid Fast Stain - Final Resulted Bronchial Washings Right Upper Lobe NO ACID FAST BACILLI SEEN 06/24/16 19:00 Mycobacterial Culture Resulted Bronchial Washings Right Upper Lobe Pending 06/24/16 19:00 Fungal Smear - Final Resulted Bronchial Washings Right Upper Lobe NO FUNGAL ELEMENTS SEEN. 06/24/16 19:00 Fungal Culture Resulted Bronchial Washings Right Upper Lobe Pending IMAGING: Chest X-Ray 06/19/16 0000 Signed Impressions: Service Date/Time: Sunday, June 19, 2016 16:39 - CONCLUSION: Possible cavitary opacity in the medial right pulmonary apex. Recommend further characterization with noncontrast CT thorax. Arash Chapman MD Chest CT 06/19/16 0000 Signed Impressions: Service Date/Time: Sunday, June 19, 2016 18:28 - CONCLUSION: Greater than 5 cm thickwalled cavitary lesion in the right apex without central debris within the cavity. Differential considerations include a bacterial infection, fungal infection, and necrotic tumor. No evidence of mediastinal adenopathy or pleural effusion. Arash Chapman MD PHYSICAL EXAMINATION GENERAL: No acute distress. Awake, alert and oriented. HEENT: icterus. Oropharynx no visible lesions, no thrush. NECK: Supple. No adenopathy or swelling. LUNGS: Decreased breath sounds. No audible rhonchi. HEART: Regular rate and rhythm without murmurs, rubs or gallops. BACK: punctate pin head size scattered erythematous lesions. EXTREMITIES: No clubbing, cyanosis or edema. SKIN: No diffuse rash. The skin of the extremities have a chronic sunburn appearance. NEUROLOGIC: Nonfocal. PSYCHIATRIC: Patient calm and cooperative. IMPRESSION 1. Cavitary lung lesion. Infection vs malignancy. 2. Pneumonia due to bacterial versus tuberculosis versus fungus. AFB negative. 3. Rule out malignancy. 4. Sepsis based on presentation of fever along with leukocytosis and suspected pneumonia. RECOMMENDATIONS 1. Continue vancomycin. 2. Stop piperacillin/tazobactam. 3. Follow pathology report. 4. D/C isolation. 5. Hydrocortisone cream to back. When the path become available, further ID disposition can be given. Kalpesh Hurst MD June 27, 2016 12:04
[2016-06-27 16:00] VITALS: BP 126/63; PULSE 57; RESP 20; TEMP 98; O2SAT 98
--- NOTE | 2016-06-27 17:09 | HHI.PR ---
Subjective Remarks YOWM with RUL cavitary lesion, hemoptysis Still has cough and sputum No fever no endobronchial lesion or erythema BAL AFB and Fungal smear neg Anxious to go home Objective Vital Signs Vital Signs Date Time Temp Pulse Resp B/P Pulse Ox O2 Delivery O2 Flow Rate FiO2 06/27/16 12:00 97.6 61 16 117/64 96 06/27/16 08:00 97.7 62 20 124/58 95 06/27/16 08:00 Room Air 06/27/16 04:00 97.7 60 20 125/71 97 06/27/16 00:00 97.8 73 19 128/81 99 06/26/16 20:00 97.8 59 16 104/55 98 06/26/16 20:00 Room Air I/O 06/26/16 06/26/16 06/26/16 06/27/16 06/27/16 06/27/16 07:00 15:00 23:00 07:00 15:00 23:00 Intake Total 280 ml 1148 ml 720 ml Balance 280 ml 1148 ml 720 ml Intake Oral 280 ml 720 ml IV Total 1148 ml # Voids 6 10 # Bowel Movements 2 Result Diagram: 06/23/16210206/27/16 0040 Objective Remarks GENERAL: MNMN WM, NAD SKIN: Warm and dry. HEAD: Normocephalic. EYES: No scleral icterus. No injection or drainage. NECK: Supple, trachea midline. No JVD or lymphadenopathy. CARDIOVASCULAR: Regular rate and rhythm without murmurs, gallops, or rubs. RESPIRATORY: Breath sounds equal bilaterally. No accessory muscle use. GASTROINTESTINAL: Abdomen soft, non-tender, nondistended. MUSCULOSKELETAL: No cyanosis, or edema. BACK: Nontender without obvious deformity. No CVA tenderness. A/P Assessment and Plan Right lung cavitary lesion, infection vs malig Hemoptysis Weight loss Nicotine use PLAN: Cont Abx Vanco and Zosyn per ID Check cultures Hemoptysis resolved Bx, cytology still pending Kayode Cheema MD June 27, 2016 17:09
--- NOTE | 2016-06-27 18:52 | HHI.PR ---
Subjective Remarks patient seen this afternoon around 2 PM. Says he is feeling comfortable. Denies any chest pain or shortness of breath. Objective Vital Signs Date Time Temp Pulse Resp B/P Pulse Ox O2 Delivery O2 Flow Rate FiO2 06/27/16 16:00 98.0 57 20 126/63 98 06/27/16 12:00 97.6 61 16 117/64 96 06/27/16 08:00 97.7 62 20 124/58 95 06/27/16 08:00 Room Air 06/27/16 04:00 97.7 60 20 125/71 97 06/27/16 00:00 97.8 73 19 128/81 99 06/26/16 20:00 97.8 59 16 104/55 98 06/26/16 20:00 Room Air I/O 06/26/16 06/26/16 06/26/16 06/27/16 06/27/16 06/27/16 07:00 15:00 23:00 07:00 15:00 23:00 Intake Total 280 ml 1148 ml 720 ml 840 ml Balance 280 ml 1148 ml 720 ml 840 ml Intake Oral 280 ml 720 ml 840 ml IV Total 1148 ml # Voids 6 10 # Bowel Movements 2 4 Result Diagram: 06/23/16 2103 06/27/16 0040 Objective Remarks GENERAL: sitting up in chair eating. Appears comfortable. Alert and oriented 3.exam unchanged from yesterday. SKIN: Warm and dry. HEAD: Normocephalic. EYES: No scleral icterus. No injection or drainage. NECK: Supple, trachea midline. No JVD. CARDIOVASCULAR: Regular rate and rhythm without murmurs, gallops, or rubs. RESPIRATORY: Breath sounds equal bilaterally. No accessory muscle use. GASTROINTESTINAL: Abdomen soft, non-tender, nondistended. MUSCULOSKELETAL: No cyanosis, or edema. BACK: Nontender without obvious deformity. No CVA tenderness. A/P Assessment and Plan 50-year-old man with //Sepsis:With sepsis criteria on admission, Temp > 100.9 or < 96.8, WBC > 00964 , < 4000 or > 10% bands, Infect source susp/known (Respiratory/ PNA): s/p Vancomycin and Zosyn IV x 1 in ED, continue with Abx pending culture reports -06/25. Improving. Continue antibiotics as per ID. -06/26. Stable. Follow up bronchoscopy culture. Plan as per pulmonology. -06/27. Continue antibiotics as per infectious disease. Await pathology results from bronchial washing. //Cavitary lesion of the Lung //Rule out tuberculosis //Rule out malignancy //Community acquired Bacterial Pneumonia //Aspiration Bacterial Pneumonia -Chest CT noted and reviewed by me with finding of Greater than 5 cm thick walled cavitary lesion in the right apex without central debris within the cavity. Differential considerations include a bacterial infection, fungal infection, and necrotic tumor -Chest x-ray noted and reviewed by me with finding of Possible cavitary opacity in the medial right pulmonary apex -Check Sylvain tuberculosis/RIF, AFP sputum -Check tumor Markers AFP, CEA, Ca 19-9, LDH -Check HIV 1/2 antibodies -Status post Zosyn and vancomycin 1 in ED, continue empiric treatments with antibiotics pending culture report -DuoNeb when necessary and Mucinex -Consult infectious disease specialist, Dr Hurst following -Consultation to pulmonary medicine for eval patient for possible bronchoscopy. Awaiting ABF if negative plan for bronch per pulm Dr Cheema -Placed in isolation - Sputum neg AFB, cultures pending . -s/p bronchoscopy 06/[address] Cheema -06/26 Follow up on culture results from bronchoscopy. Continue IV antibiotics. plan as per pulmonology. -06/27. Await pathology results from bronchial washing. Continue antibiotics as per infectious disease. //Protein-calorie malnutrition severe Secondary to above Dietary/Pulley Maintainer consult for calorie counts //DVT prophylaxis: Bilateral SCDs //GI prophylaxis: PPI Discharge Planning awaiting bronchoscopy cytology results Issa Turk MD June 27, 2016 18:52
[2016-06-27 20:00] VITALS: BP 130/75; PULSE 56; RESP 14; TEMP 98.1; O2SAT 100
[2016-06-27] MEDS: HYDROCORTISONE 2.5% CREAM 30 GM TOPICAL SCH (21:00)
[2016-06-28] VITALS: BP 125/72; PULSE 58; RESP 16; TEMP 98; O2SAT 97
[2016-06-28] MEDS: VANCOMYCIN 1,500 MG/NS 500 ML IV SCH ×4 (00:27→13:56)
[2016-06-28 04:00] VITALS: BP 123/78; PULSE 59; RESP 16; TEMP 97.6; O2SAT 97
[2016-06-28 08:00] VITALS: BP 124/68; PULSE 55; RESP 20; TEMP 97.5; O2SAT 98
[2016-06-28] MEDS: SODIUM CHLORIDE 0.9% FLUSH 10 ML FLUSH IV FLUSH SCH (09:00)
[2016-06-28] MEDS: PANTOPRAZOLE SOD 40 MG DELAYED RELEASE TAB PO SCH (09:26)
[2016-06-28] MEDS: LACTOBACILLUS ACIDOPHILUS TAB PO SCH (09:26)
[2016-06-28] MEDS: guaiFENesin E.R. 600 MG TAB PO SCH (09:26)
[2016-06-28] MEDS: HYDROCORTISONE 2.5% CREAM 30 GM TOPICAL SCH (09:27)
[2016-06-28 12:00] VITALS: BP 117/75; PULSE 58; RESP 20; TEMP 97.8; O2SAT 98
[2016-06-28] MEDS ORDERED: LACT PO (16:23)
[2016-06-28] MEDS ORDERED: CLIN1CAP6 PO (16:23)
[2016-06-28] MEDS ORDERED: PANT40TA3 PO (16:23)
[2016-06-28] MEDS ORDERED: HYDR2.5C TOPICAL (16:23)
[2016-06-28] MEDS ORDERED: ALBUAER3 INH (16:26)
--- NOTE | 2016-06-28 19:26 | HHI.PR ---
Subjective Remarks Patient seen this afternoon. Says he is feeling well. Denies any chest pain or shortness of breath. Denies any nausea or vomiting. Says he feels like going home. He promises to follow-up in the community clinic to go over his pathology results. Discussed with infectious disease. Patient can go on clindamycin as long as she has appropriate follow-up with primary care to go over results of bronchoalveolar lavage. I discussed with senior case manager. I called the clinic and arrange for appointment at 10 AM on Monday07/01/16. Patient informed. Conveys understanding. Objective Vital Signs Date Time Temp Pulse Resp B/P Pulse Ox O2 Delivery O2 Flow Rate FiO2 06/28/16 12:00 97.8 58 20 117/75 98 06/28/16 08:00 Room Air 06/28/16 08:00 97.5 55 20 124/68 98 06/28/16 04:00 97.6 59 16 123/78 97 06/28/16 00:00 98.0 58 16 125/72 97 06/27/16 21:30 Room Air 06/27/16 20:00 98.1 56 14 130/75 100 I/O 06/27/16 06/27/16 06/27/16 06/28/16 06/28/16 06/28/16 07:00 15:00 23:00 07:00 15:00 23:00 Intake Total 720 ml 840 ml 242 ml 494 ml Balance 720 ml 840 ml 242 ml 494 ml Intake Oral 720 ml 840 ml 240 ml 240 ml IV Total 2 ml 254 ml # Voids 10 2 2 # Bowel Movements 4 0 0 Result Diagram: 06/28/16 0659 Objective Remarks GENERAL: sitting up in chair. Appears comfortable. Alert and oriented 3.exam unchanged from yesterday. SKIN: Warm and dry. HEAD: Normocephalic. EYES: No scleral icterus. No injection or drainage. NECK: Supple, trachea midline. No JVD. CARDIOVASCULAR: Regular rate and rhythm without murmurs, gallops, or rubs. RESPIRATORY: Breath sounds equal bilaterally. No accessory muscle use. GASTROINTESTINAL: Abdomen soft, non-tender, nondistended. MUSCULOSKELETAL: No cyanosis, or edema. BACK: Nontender without obvious deformity. No CVA tenderness. A/P Assessment and Plan 50-year-old man with //Sepsis:With sepsis criteria on admission, Temp > 100.9 or < 96.8, WBC > 29459 , < 4000 or > 10% bands, Infect source susp/known (Respiratory/ PNA): s/p Vancomycin and Zosyn IV x 1 in ED, continue with Abx pending culture reports -06/25. Improving. Continue antibiotics as per ID. -06/26. Stable. Follow up bronchoscopy culture. Plan as per pulmonology. -06/27. Continue antibiotics as per infectious disease. Await pathology results from bronchial washing. -06/28. Patient feeling well. Would like to go home. Infectious disease recommends going home on Clindex to cover for possible MRSA. Follow-up with primary care as outpatient go over results from BAL. //Cavitary lesion of the Lung //Rule out tuberculosis //Rule out malignancy //Community acquired Bacterial Pneumonia //Aspiration Bacterial Pneumonia -Chest CT noted and reviewed by me with finding of Greater than 5 cm thick walled cavitary lesion in the right apex without central debris within the cavity. Differential considerations include a bacterial infection, fungal infection, and necrotic tumor -Chest x-ray noted and reviewed by me with finding of Possible cavitary opacity in the medial right pulmonary apex -Check Sylvain tuberculosis/RIF, AFP sputum -Check tumor Markers AFP, CEA, Ca 19-9, LDH -Check HIV 1/2 antibodies -Status post Zosyn and vancomycin 1 in ED, continue empiric treatments with antibiotics pending culture report -DuoNeb when necessary and Mucinex -Consult infectious disease specialist, Dr Hurst following -Consultation to pulmonary medicine for eval patient for possible bronchoscopy. Awaiting ABF if negative plan for bronch per pulm Dr Cheema -Placed in isolation - Sputum neg AFB, cultures pending . -s/p bronchoscopy 06/24 per pulkay Cheema -06/26 Follow up on culture results from bronchoscopy. Continue IV antibiotics. plan as per pulmonology. -06/27. Await pathology results from bronchial washing. Continue antibiotics as per infectious disease. -06/28. Discharge home on clindamycin. Follow-up with primary care to go over results of BAL. //Protein-calorie malnutrition severe Secondary to above Dietary/Pen Tester consult for calorie counts -patient is eating his meals. Recommend Ensure as outpatient. //DVT prophylaxis: Bilateral SCDs //GI prophylaxis: PPI Discharge Planning Patient will follow up with primary care as outpatient to go for bronchoscopy results. Continue clindamycin for treatment of possible MRSA pneumonia. Issa Turk MD June 28, 2016 19:26
--- NOTE | 2016-06-28 19:27 | HHI.DS ---
Discharge Summary Admission Date Jun 19, 2016 at 19:41 Discharge Date: June 28, 2016 Admitting Diagnosis Cavitary Lung Lesion. (1) Sepsis ICD Code: A41.9 (2) Cavitary lesion of lung ICD Code: J98.4 (3) Pneumonia ICD Code: J18.9 (4) Protein-calorie malnutrition, severe ICD Code: E43 (5) Community acquired bacterial pneumonia ICD Code: J15.9 (6) Aspiration pneumonia ICD Code: J69.0 Procedures bronchoalveolar lavage with biopsy06/24/16.please see report. Brief History - From Admission 50 year-old male with a history of anxiety/depression presented to the ED for evaluation of 3 weeks history of bloody sputum production associated with night sweats, subjective fevers and increased shortness of breath along with a 30 pound weight loss over the past 1 month. She also reported sick contacts, his girlfriend however with symptoms not as severe as his. He was recently in correction or denies any trauma to any foreign countries or known history of exposure to tuberculosis. Patient states he's tried [id number] Mucinex for his cough and cold symptoms without any improvement . In the ED, vitals include temperature of 100.3 and WBC of 16.6 and abnormal chest x-ray as well as CT chest Patient is a 50-year-old male presents with 3 week history of cough productive of bloody sputum. Patient does relate a history that he was in correction recently. He denies any fevers. He states he has not seen another physician for this. Denies any travel to foreign countries denies any history of tuberculosis. States he has not been losing weight but does endorse some night sweats. On arrival the patient was afebrile he was moved into the emergency department. On my initial evaluation was found to have a temperature of 100.3 orally. Denies any chest pain abdominal pain nausea vomiting or diarrhea. CBC/BMP: 06/28/16 0659 Significant Findings Laboratory Tests Test 06/26/16 06/27/16 07:00 00:40 Estimat Glomerular Filtration 79 ML/MIN (>89) 85 ML/MIN (>89) Rate Vancomycin Level Trough 18.8 MCG/ML (5.0-10.0) Imaging Last Impressions Chest X-Ray 06/24/16 0000 Signed Impressions: Service Date/Time: Friday, June 24, 2016 20:22 - CONCLUSION: Persistent consolidation at the medial right upper lobe and possibly at the lateral right midlung. Hilario Morin MD Chest CT 06/19/16 0000 Signed Impressions: Service Date/Time: Sunday, June 19, 2016 18:28 - CONCLUSION: Greater than 5 cm thickwalled cavitary lesion in the right apex without central debris within the cavity. Differential considerations include a bacterial infection, fungal infection, and necrotic tumor. No evidence of mediastinal adenopathy or pleural effusion. Arash Chapman MD PE at Discharge GENERAL: Cachectic looking man with temporal wasting SKIN: No rashes, ecchymoses or lesions. Cool and dry. HEAD: Atraumatic. Normocephalic. No temporal or scalp tenderness. EYES: Pupils equal round and reactive. Extraocular motions intact. No scleral icterus. No injection or drainage. ENT: Nose without bleeding, purulent drainage or septal hematoma. Throat without erythema, tonsillar hypertrophy or exudate. Uvula midline. Airway patent. NECK: Trachea midline. No JVD or lymphadenopathy. Supple, nontender, no meningeal signs. CARDIOVASCULAR: Regular rate and rhythm without murmurs, gallops, or rubs. RESPIRATORY: Clear to auscultation. Breath sounds decreased bilaterally. No wheezes, rales, or rhonchi. GASTROINTESTINAL: Abdomen soft, non-tender, nondistended. No hepato-splenomegaly , or palpable masses. No guarding. MUSCULOSKELETAL: Extremities without clubbing, cyanosis, or edema. No joint tenderness, effusion, or edema noted. No calf tenderness. Negative Homans sign bilaterally. NEUROLOGICAL: Awake and alert. Cranial nerves II through XII intact. Motor and sensory grossly within normal limits. Five out of 5 muscle strength in all muscle groups. Normal speech. Hospital Course Patient was found to have cavitary lesion right upper lung as on x-ray above. Started on broad-spectrum antibiotics and infectious disease followed. Patient underwent bronchoscopy with bronchoalveolar lavage on 06/24. BAL stain negative for TB, cultures negative at this time. Pathology is still pending. Patient will need to follow-up with primary care to go over pathology results. 50-year-old man with //Sepsis:With sepsis criteria on admission, Temp > 100.9 or < 96.8, WBC > 91264 , < 4000 or > 10% bands, Infect source susp/known (Respiratory/ PNA): s/p Vancomycin and Zosyn IV x 1 in ED, continue with Abx pending culture reports -06/25. Improving. Continue antibiotics as per ID. -06/26. Stable. Follow up bronchoscopy culture. Plan as per pulmonology. -06/27. Continue antibiotics as per infectious disease. Await pathology results from bronchial washing. -06/28. Patient feeling well. Would like to go home. Infectious disease recommends going home on Clindex to cover for possible MRSA. Follow-up with primary care as outpatient go over results from BAL. //Cavitary lesion of the Lung //Rule out tuberculosis //Rule out malignancy //Community acquired Bacterial Pneumonia //Aspiration Bacterial Pneumonia -Chest CT noted and reviewed by me with finding of Greater than 5 cm thick walled cavitary lesion in the right apex without central debris within the cavity. Differential considerations include a bacterial infection, fungal infection, and necrotic tumor -Chest x-ray noted and reviewed by me with finding of Possible cavitary opacity in the medial right pulmonary apex -Check Sylvain tuberculosis/RIF, AFP sputum -Check tumor Markers AFP, CEA, Ca 19-9, LDH -Check HIV 1/2 antibodies -Status post Zosyn and vancomycin 1 in ED, continue empiric treatments with antibiotics pending culture report -DuoNeb when necessary and Mucinex -Consult infectious disease specialist, Dr Hurst following -Consultation to pulmonary medicine for eval patient for possible bronchoscopy. Awaiting ABF if negative plan for bronch per pulm Dr Cheema -Placed in isolation - Sputum neg AFB, cultures pending . -s/p bronchoscopy 06/[address] Cheema -06/26 Follow up on culture results from bronchoscopy. Continue IV antibiotics. plan as per pulmonology. -06/27. Await pathology results from bronchial washing. Continue antibiotics as per infectious disease. -06/28. Discharge home on clindamycin. Follow-up with primary care to go over results of BAL. //Protein-calorie malnutrition severe Secondary to above Dietary/Transfer Driver consult for calorie counts -patient is eating his meals. Recommend Ensure as outpatient. //DVT prophylaxis: Bilateral SCDs //GI prophylaxis: PPI Discharge Planning Patient will follow up with primary care as outpatient to go for bronchoscopy results. Continue clindamycin for treatment of possible MRSA pneumonia. Pt Condition on Discharge: Good Discharge Disposition: Discharge Home Discharge Time: > 30 minutes Discharge Instructions DIET: Follow Instructions for: Heart Healthy Diet Activities you can perform: Regular-No Restrictions Follow up Referrals: PCP Follow-up - 3-5 Days with Darshana Ordonez MD Pulmonology - 1 Week with Kayode Cheema MD New Medications: Albuterol 8.5 GM Inh (Proair Hfa 8.5 GM Inh) 90 Mcg/Act Aer 2 PUFF INH Q4-6H 108 mcg/actuation PRN SHORTNESS OF BREATH #1 Ref 0 INHALER Clindamycin (Clindamycin) 300 Mg Cap 300 MG PO Q6H Infection Days 14 Ref 0 CAP Hydrocortisone Topical (Hydrocortisone Topical) 2.5% Cream 1 APPLIC TOPICAL BID Rash Days 7 TUBE Lactobacillus Acidophilus (Acidophilus/l-Sporogenes) 1 Tab Tab 1 TAB PO Q12HR prevent diarrhea Days 30 TAB Pantoprazole (Pantoprazole) 40 Mg Tab 40 MG PO DAILY Reflux Days 30 TAB Issa Turk MD June 28, 2016 19:27
== END 2016-06-28 18:11 | disposition home or self-care (01) | DRG 853 ==
LOC: NEPD 14:27 → NEDA 19:41 → NEPGCP 22:12 → N04A 06-21 22:38
PROVIDERS: ADMIT Internal Medicine; ATTEND Internal Medicine
PROC: 0BBC8ZX Excision of Right Upper Lung Lobe, Via Natural or Artificial Opening Endoscopic, Diagnostic (ICD-10-PCS; principal; 2016-06-24 19:20)
DX: A41.9 Sepsis, unspecified organism (principal); E43 Unspecified severe protein-calorie malnutrition; J69.0 Pneumonitis due to inhalation of food and vomit; J15.9 Unspecified bacterial pneumonia; A15.0 Tuberculosis of lung; Z86.14 Personal history of Methicillin resistant Staphylococcus aureus infection; Z72.0 Tobacco use
CPT/HCPCS: 71010; 71020; 71260; 76000; 80048; 80053; 80202; 80307; 82105; 82378; 82565; 83605; 83615; 83735; 84484; 85025; 85610; 85730; 86301; 86703; 87015; 87040; 87070; 87102; 87116; 87205; 87206; 88305; 88307; 88312; 93005; 94664; 96374; 96375; J1200; J2543; J3010; J3370; J7030; J7040; J7050; J7613; Q9967

== ENCOUNTER 2016-07-10 22:26 | Emergency (ER) | payer SELFPAY ==
[~2016-07-10] VITALS: Ht 180.3 cm; Wt 75.0 kg
[~2016-07-10 22:26] MED LIST changes: +ALBUAER3 INH; +CLIN1CAP6 PO; -CLON1 PO; +HYDR2.5C TOPICAL; +LACT PO; +PANT40TA3 PO
[2016-07-10 22:28] VITALS: BP 118/82; PULSE 99; RESP 16; TEMP 97.8; O2SAT 99
--- NOTE | 2016-07-10 22:51 | PD ---
HPI Chief Complaint: Medical Clearance Time Seen by Provider: 22:48 Travel History International Travel<30 days: No Contact w/Intl Traveler<30days: No Traveled to known affect area: No History of Present Illness HPI 50-year-old male here after recent hospitalization for pneumonia with complaint of a "lump" in the right upper extremity vein. Patient was hospitalized for a pneumonia, rule out TB, rule out malignancy. Was discharged home with antibiotics. Patient states today he notes a small lump in a vein in the right upper extremity today. Patient points to location from a previous IV site in the right upper extremity. PFSH Past Medical History Anxiety: Yes ([address] KELLER) Cancer: No Cardiovascular Problems: No Diabetes: Yes (HYPOGLYCEMIA) Diminished Hearing: No Endocrine: Yes Genitourinary: No Immune Disorder: No Musculoskeletal: No Neurologic: No Psychiatric: No Reproductive: No Respiratory: No Past Surgical History Abdominal Surgery: No Cardiac Surgery: No Ear Surgery: No Endocrine Surgery: No Eye Surgery: No Genitourinary Surgery: No Gynecologic Surgery: No Oral Surgery: No Thoracic Surgery: No Other Surgery: Yes (8 I+D PROCEDURES S/P INSECT BITE RIGHT ARM) Social History Alcohol Use: Yes ("maybe one drink once a month!") Tobacco Use: No (quit 3 weeks ago.) Substance Use: No (used to smoke crack) Allergies-Medications (Allergen,Severity, Reaction): Coded Allergies: Influenza Virus Vaccine (Verified Allergy, Severe, 07/10/16) Penicillin (Verified Allergy, Severe, 07/10/16) Codeine (Verified Allergy, Unknown, 07/10/16) Reported Meds & Prescriptions Reported Meds & Active Scripts Active Proair Hfa 8.5 GM Inh (Albuterol Sulfate) 90 Mcg/Act Aer 2 Puff INH Q4-6H PRN 108 mcg/actuation Hydrocortisone Topical 2.5% Cream 1 Applic TOPICAL BID 7 Days Acidophilus/l-Sporogenes (Lactobacillus Acidophilus) 1 Tab Tab 1 Tab PO Q12HR 30 Days Pantoprazole (Pantoprazole Sodium) 40 Mg Tab 40 Mg PO DAILY 30 Days Clindamycin (Clindamycin HCl) 300 Mg Cap 300 Mg PO Q6H 14 Days Review of Systems Except as stated in HPI: all other systems reviewed are Neg Physical Exam Narrative GENERAL: Well-appearing male in no acute distress SKIN: Focused skin assessment warm/dry. HEAD: Normocephalic. CARDIOVASCULAR: Regular rate and rhythm. RESPIRATORY: No accessory muscle use. MUSCULOSKELETAL: Right upper extremity with small lump in the vein just proximal to previous IV site. No erythema, warmth, fluctuance. NEUROLOGICAL: Awake and alert. Moves all extremity's normally. Normal speech. PSYCHIATRIC: Appropriate mood and affect; insight and judgment normal. Data Data Last Documented VS Vital Signs Date Time Temp Pulse Resp B/P Pulse Ox O2 Delivery O2 Flow Rate FiO2 07/10/16 22:28 97.8 99 16 118/82 99 Room Air MDM Medical Decision Making Medical Screen Exam Complete: Yes Emergency Medical Condition: Yes Medical Record Reviewed: Yes Differential Diagnosis 50-year-old male here with complaint of lump in the vein in the right upper extremity from her previous IV site. Exam is consistent with superficial thrombophlebitis without evidence of cellulitis. Narrative Course Patient reassured, conservative management, discharged home Diagnosis Primary Impression: Superficial thrombophlebitis Qualified Code: I80.8 - Superficial thrombophlebitis of right upper extremity Referrals: Primary Care Physician as needed Additional Instructions: Warm packs to the affected area. Med/Other Pt SpecificInfo: No Change to Meds Disposition: 01 DISCHARGE HOME Condition: Stable Sarah Erazo MD July 10, 2016 22:51
== END 2016-07-10 23:03 | disposition home or self-care (01) ==
LOC: NEPE 22:26
DX: I80.8 Phlebitis and thrombophlebitis of other sites (principal); E11.649 Type 2 diabetes mellitus with hypoglycemia without coma; F41.9 Anxiety disorder, unspecified
CPT/HCPCS: 99282